=== PATIENT | male | born 1970 | race Caucasian/White ===

== ENCOUNTER 2022-11-19 04:10 | Inpatient (IN) | payer OTHER ==
[~2022-11-19] VITALS: Ht 193 cm; Wt 69.0 kg
[2022-11-19] VITALS (31 sets, daily range): BP systolic 86–144; BP diastolic 63–103
[2022-11-19] MEDS ORDERED: POTA10T PO (04:23)
[2022-11-19] MEDS ORDERED: FURO40 PO (04:23)
[2022-11-19 04:24] LABS: BASOPHILS ABSOLUTE AUTO 0.07 K/mm3 (0.00-0.23); BASOPHILS PERCENT AUTO 1 % (0-2); EOSINOPHILS ABSOLUTE AUTO 0.09 K/mm3 (0.00-0.68); EOSINOPHILS PERCENT AUTO 1 % (0-6); Hematocrit 46.4 % (37.0-53.0); Hemoglobin 13.9 g/dL (13.5-17.5); IMMATURE GRAN ABSOLUTE AUTO 0.03 K/mm3 (0.00-0.10); IMMATURE GRAN PERCENT AUTO 0 % (0-1); LYMPHOCYTES PERCENT AUTO 8 % (21-46); MONOCYTES ABSOLUTE AUTO 0.89 K/mm3 (0.16-1.47); MONOCYTES PERCENT AUTO 8 % (4-13); Mean Corpuscular HGB 31.7 pg (26.0-34.0); Mean Corpuscular Volume 106 fL (80-100); Mean Platelet Volume 8.9 fL (9.1-12.4); NEUTROPHILS ABSOLUTE AUTO 9.26 K/mm3 (1.96-9.15); NEUTROPHILS PERCENT AUTO 82 % (41-73); Platelet Count 218 K/mm3 (150-400); RDW Standard Deviation 51.2 fL (35.1-46.3); Red Blood Cell Count 4.39 M/mm3 (4.30-5.90); White Blood Cell Count 11.24 K/mm3 (4.00-11.30)
[2022-11-19] MEDS ORDERED: TRELEGY ELLIPT1 EACH INH (04:24)
[2022-11-19 04:38] LABS: Bicarbonate Venous 40.9 mmol/L (24.0-30.0)
[2022-11-19 04:59] LABS: Alanine Aminotransfer (ALT/SGP 26 U/L (12-78); Albumin, Blood 3.7 g/dL (3.4-5.0); Albumin/Globulin Ratio 0.9 (0.8-1.8); Alk Phos 135 U/L (50-136); Aspartate Aminotrans (AST/SGOT 21 U/L (12-37); Bilirubin, Total 0.3 mg/dL (0.1-1.0); Blood Urea Nitrogen 20 mg/dL (8-24); Bun/Creatinine Ratio 38.3 (12.0-20.0); Calcium, Blood 9.5 mg/dL (8.5-10.1); Chloride, Blood 90 mmol/L (98-108); Creatinine, Blood 0.52 mg/dL (0.60-1.20); Glomerular Filtration Rate 121 (60-); Glucose, Blood 151 mg/dL (70-99); Potassium, Blood 4.9 mmol/L (3.5-5.5); Sodium, Blood 134 mmol/L (136-145); Total Protein, Blood 7.7 g/dL (6.4-8.2)
[2022-11-19 05:00] LABS: Anion Gap Unable to Calculate mmol/L (6-16); CO2, Blood >45 mmol/L (21-32)
[2022-11-19 07:43] LABS: Base Excess Venous 19.4 mmol/L; Bicarbonate Venous 37.6 mmol/L (24.0-30.0)
[2022-11-19 07:44] LABS: PCO2 Venous > 104 mmHg (38-42); pH Blood Venous 7.25 (7.34-7.37)
--- NOTE | 2022-11-19 08:45 | NUR ---
ARRIVAL TO ICU PT BROUGHT TO ICU 14 AT THIS TIME FROM PCU. PT ON BIPAP WITH SETTINGS 16/6/40%. RR 20S-30S. SPO2 88-93%. PT MAKES EYE CONTACT, FOLLOWS SIMPLE COMMANDS. HE IS ALERT TO SELF AND PLACE BUT STS HE DOES NOT KNOW HOW HE GOT HERE. HE DENIES SOB AND CP AT THIS TIME. WHEN ASKED IF HE FEELS BIPAP, PT STS "I THINK SO". WHILE REPOSITIONING, PT REPORTS ORTHOPNEA AND SITS UP IN TRIPOD POSITION. SAFETY COMPLIANCE SPECIALIST HAS BEEN CONSULTED. CONSULTING SYSTEMS ENGINEER AT BEDSIDE.
--- NOTE | 2022-11-19 09:15 | NUR ---
UPDATE ECHO COMPLETE. PER TECH, PRELIMINARY RESULTS SHOW POSSIBLE PE AND AWAITIN OFFICIAL READ. DR GOSS NOTIFIED. NO ADDITIONAL ORDERS AT THIS TIME.
[2022-11-19 09:31] LABS: Base Excess Venous 18.4 mmol/L; Bicarbonate Venous 37.5 mmol/L (24.0-30.0); PCO2 Venous 99.5 mmHg (38-42); pH Blood Venous 7.27 (7.34-7.37)
--- NOTE | 2022-11-19 09:40 | NUR ---
CARE ASSUMPTION AND TRANSFER NOTE PT ARRIVED TO PCU FROM ED VIA ED STRETCHER AT APPROX 0730. PT WAS SLID BY 4 STAFF FROM ED STRETCHER TO PCU BED. PT RESPONDING TO SOME COMMANDS, LETHARGIC. UNABLE TO ANSWER WHERE HE WAS. ABLE TO STATE HAS SON WITH "MY NAME", UNABLE TO STATE HOW TO CONTACT SON. PT ARRIVED ON BIPAP, 16/8, 30%. TACHYPENIC, WORK OF BREATHING NOTED, SP02>90%. LUNGS WHEEZY, CRACKLES IN BASES. RT IN ROOM W/ NEB TX. TELEMETRY VERIFIED W/ SINUS TACH, HR 110'S. BP STABLE. PEDAL PULSES STRONG, THOUGH FEET COLD TO TOUCH. TRACE EDEMA NOTED IN ANKLES. ABX INFUSING PER EMAR UPON ARRIVAL. RT NOTIFIED OF CRITICAL VBG, SEE RESULTS. RT CHANGED SETTINGS TO 18/, 40% FI02. CALL PLACED TO MD JIMENEZ. MD JIMENEZ IN ROOM TO ASSESS. PT INCREASINGLY LETHARGIC. MD JIMENEZ W/ ORDERS FOR PT TO BE TRANSFER TO ICU 14. REPORT GIVEN TO PROCUREMENT SERVICES MANAGER.
--- NOTE | 2022-11-19 10:00 | NUR ---
UPDATE DR GOSS AT BEDSIDE. ECHO REPORT NOW AVAILABLE. PT REMAINS ON BIPAP. HIS MENTATION TRANSITIONS FROM A&OX1-2, SOMNOLENT AT TIMES.
[2022-11-19 11:08] LABS: U Amphetamine Screen Not Detected; U Barbituate Screen Not Detected; U Benzodiazapine Screen Not Detected; U Buprenorphine Screen Not Detected; U Cannabinoids Screen DETECTED; U Cocaine Screen Not Detected; U Methadone Screen Not Detected; U Methamphetamine Screen Not Detected; U Opiates Screen Not Detected; U Oxycodone Screen Not Detected; U Phencyclidine Screen Not Detected; U Propoxyphene Screen Not Detected
--- NOTE | 2022-11-19 11:34 | NUR ---
UPDATE PT MORE ALERT AT THIS TIME. HE STS HE FELT SOB THIS MORNING AND HIM AND HIS DECIDED TO CALL EMS. HE STS HE HAS A HISTORY OF COPD AND WEARS CONTINUOUS 8L O2 AT HOME. HE ALSO REPORTS RECENTLY RE-STARTING SMOKING 1/4-1/2 PACK OF CIGARETTES A DAY AND IT HAS INCREASED COUGHING AT HOME. PT DENIES MEDICAL HISTORY OTHER THAN COPD. PLAN FOR CTA.
[2022-11-19 12:05] LABS: Influenza A, PCR NEGATIVE (NEGATIVE); Influenza B, PCR NEGATIVE (NEGATIVE); Resp Syncytial Virus, PCR NEGATIVE (NEGATIVE); SARS-Cov-2 (COVID-19) PCR, MMC NEGATIVE (NEGATIVE)
[2022-11-19 12:27] LABS: Base Excess Venous 20.2 mmol/L; Bicarbonate Venous 39.9 mmol/L (24.0-30.0); PCO2 Venous 88.2 mmHg (38-42); pH Blood Venous 7.33 (7.34-7.37)
[2022-11-19] MEDS ORDERED: SILD25T PO ×2 (14:52→14:53)
[2022-11-19] MEDS ORDERED: STIOLTO RESPIMAT4 G1 INH (14:54)
[2022-11-19] MEDS ORDERED: MIRT15ST PO (14:54)
[2022-11-19] MEDS ORDERED: ALBU90OI INH (14:54)
[2022-11-19 15:15] LABS: Anion Gap Unable to Calculate mmol/L (6-16); Blood Urea Nitrogen 15 mg/dL (8-24); Bun/Creatinine Ratio 29.3 (12.0-20.0); CO2, Blood >45 mmol/L (21-32); Calcium, Blood 9.1 mg/dL (8.5-10.1); Chloride, Blood 91 mmol/L (98-108); Creatinine, Blood 0.51 mg/dL (0.60-1.20); Glomerular Filtration Rate 121 (60-); Glucose, Blood 206 mg/dL (70-99); Phosphorus, Blood 2.7 mg/dL (2.5-4.9); Potassium, Blood 5.4 mmol/L (3.5-5.5); Sodium, Blood 136 mmol/L (136-145)
--- NOTE | 2022-11-19 18:32 | NUR ---
SHIFT SUMMARY PT HAS BEEN TOLERATING BIPAP WELL WITH SETTINGS 16/8/35%. PT HAS PERIODS OF SOMNOLENCE AND THEN BEING A&OX3. HE HAS DIFFICULTY REMEMBERING SPECIFIC DETAILS BUT IS ABLE TO ANSWER HEALTH HISTORY QUESTIONS FOR THE MOST PART. HE STS HE SEES A DR IN [place]. HE STS HE HAS COPD AND WEARS 8L NC CONTINUOUS AT HOME AND THAT IT HAS GOTTEN WORSE OVER THE LAST YEAR. WHEN ASKED IF HE HAS BEEN TOLD THAT HE HAS PULMONARY HYPERTENSION HE STS "YEAH I THINK I'VE BEEN TOLD THAT BEFORE, SOUNDS FAMILIAR". CURRENTLY HE IS A&OX3, ON 15L HI-FLOW NC TO EAT DINNER, PLAN TO TRANSITION BACK TO BIPAP AFTER MEAL. PT REPORTS FEELING ANXIOUS. HE REPORTS USING MARIJUANA TO MANAGE ANXIETY AT HOME. DR GOSS NOTIFIED, ORDER RECEIVED FOR PRN XANAX. HE HAS BEEN IN SINUS TACH SINCE ADMISSION WITH RATE 100S-120S. BP STABLE, MAP >65. SNOW PATENT AND DRAINING TO GRAVITY WITH 2000ML OUTPUT THIS SHIFT. BED IN LOW POSITION AND CALL LIGHT WITHIN REACH.
--- NOTE | 2022-11-19 19:55 | NUR ---
PATIENT SOB AFTER EATING DINNER WITH RESP IN THE 30'S. ON 14L/NC DURING BREAK FROM BIPAP. PATIENT REQUESTING WARM AIR OFF ON BIPAP, BIPAP 16/6 FIO2 35% PLACED WHEN FALLING TO SLEEP BIOX DOWN TO 88-89% FIO2 ON BIPAP INCREASED TO 45% AND PATIENT REPOSITIONED IN BED. PATIENT NOW SLEEPING RESP 23 WITH BIPAP 16/6 FIO2 40% IN PLACE BIOX 94% OPENS EYES TO STIMULI, FALLING BACK TO SLEEP EASILY. PATIENTS MAHESH GIVEN UPDATE.
[2022-11-19 20:16] LABS: Source, Urine Foley catheter
[2022-11-19 20:19] LABS: Bilirubin, Urine Neg (Neg); Blood, Urine 5+ (Neg); Glucose Qualitative, Urine Neg (Neg); Ketones, Urine Neg (Neg); Leukocyte Esterase, Urine 2+ (Neg); Nitrite, Urine Neg (Neg); Protein, Urine 2+ (Neg); Specific Gravity, Urine 1.015 (1.003-1.022); Urobilinogen, Urine NORM (Normal)
[2022-11-19 20:29] LABS: Appearance, Urine Cloudy (Clear); Color, Urine Red (P-Yellow)
[2022-11-19 20:30] LABS: Bacteria Few /hpf; Red Blood Cells, Urine TNTC /hpf (0-2); Squamous Epithelial Cells Not Seen /hpf (Few)
[2022-11-20] VITALS (24 sets, daily range): BP systolic 92–164; BP diastolic 70–120
[2022-11-20 03:37] LABS: BASOPHILS ABSOLUTE AUTO 0.02 K/mm3 (0.00-0.23); BASOPHILS PERCENT AUTO 0 % (0-2); EOSINOPHILS ABSOLUTE AUTO 0.01 K/mm3 (0.00-0.68); EOSINOPHILS PERCENT AUTO 0 % (0-6); Hematocrit 39.9 % (37.0-53.0); Hemoglobin 12.3 g/dL (13.5-17.5); IMMATURE GRAN ABSOLUTE AUTO 0.05 K/mm3 (0.00-0.10); IMMATURE GRAN PERCENT AUTO 0 % (0-1); LYMPHOCYTES ABSOLUTE AUTO 0.58 K/mm3 (0.84-5.20); LYMPHOCYTES PERCENT AUTO 4 % (21-46); MONOCYTES PERCENT AUTO 4 % (4-13); Mean Corpuscular HGB Conc 30.8 g/dL (31.5-36.5); Mean Corpuscular Volume 104 fL (80-100); Mean Platelet Volume 9.5 fL (9.1-12.4); NEUTROPHILS ABSOLUTE AUTO 12.32 K/mm3 (1.96-9.15); NEUTROPHILS PERCENT AUTO 91 % (41-73); Platelet Count 199 K/mm3 (150-400); RDW Standard Deviation 49.2 fL (35.1-46.3); Red Blood Cell Count 3.84 M/mm3 (4.30-5.90); White Blood Cell Count 13.58 K/mm3 (4.00-11.30)
[2022-11-20 04:00] LABS: Magnesium, Blood 1.9 mg/dL (1.6-2.4)
[2022-11-20 04:03] LABS: Alanine Aminotransfer (ALT/SGP 17 U/L (12-78); Albumin, Blood 2.9 g/dL (3.4-5.0); Albumin/Globulin Ratio 0.9 (0.8-1.8); Alk Phos 103 U/L (50-136); Aspartate Aminotrans (AST/SGOT 16 U/L (12-37); Bilirubin, Total 0.3 mg/dL (0.1-1.0); Blood Urea Nitrogen 16 mg/dL (8-24); Bun/Creatinine Ratio 31.1 (12.0-20.0); Calcium, Blood 8.7 mg/dL (8.5-10.1); Chloride, Blood 90 mmol/L (98-108); Creatinine, Blood 0.51 mg/dL (0.60-1.20); Globulin, Blood 3.3 g/dL (2.2-4.0); Glomerular Filtration Rate 121 (60-); Glucose, Blood 173 mg/dL (70-99); Potassium, Blood 4.6 mmol/L (3.5-5.5); Sodium, Blood 136 mmol/L (136-145); Total Protein, Blood 6.2 g/dL (6.4-8.2)
[2022-11-20 04:05] LABS: Anion Gap Unable to Calculate mmol/L (6-16); CO2, Blood >45 mmol/L (21-32)
--- NOTE | 2022-11-20 06:38 | NUR ---
SUMMARY PATIENT SLEEPING WITH BIPAP 16/6 FIO2 40% IN PLACE T/O NIGHT, TAKING SHORT BREAKS ON 14L/NC, THIS MORNING AWAKE AND ASKING FOR COFFEE, OXYGEN TITRATED DOWN TO 8L/NC DUE TO BIOX 97-99%. PATIENT REQUESTING BIPAP REPLACED DUE TO FEELING DIFFICULTY TAKING DEEP BREATH. PATIENT REMAINS SINUS TACH MOSTLY LOW 100'S ONCE DURING THE NIGHT SVT 150, WHILE PATIENT SLEEPING, SELF RESOLVING.
--- NOTE | 2022-11-20 18:30 | NUR ---
Shift summary. Pt alert and oriented. On bipap throughout most of the shift. Independent in bed, able to easily ambulate to commode. Able to tolerate short breaks off bipap with humidified high-flow NC at 10 L/min. Pt tires easily. VS stable, no acute events this shift. See chart for further details. Will report off to nightshift RN.
--- NOTE | 2022-11-20 19:13 | NUR ---
PATIENT RESTING QUIETLY WATCHING TV, BIPAP 16/6 FIO2 35% IN PLACE. PATIENT VERBALIZED "I'M FEELING WIPED" RESP CONTINUE 30'S INCREASING WITH EXERTION.
[2022-11-21] VITALS (12 sets, daily range): BP systolic 107–131; BP diastolic 76–92
[2022-11-21 03:43] LABS: BASOPHILS ABSOLUTE AUTO 0.01 K/mm3 (0.00-0.23); BASOPHILS PERCENT AUTO 0 % (0-2); EOSINOPHILS PERCENT AUTO 0 % (0-6); Hematocrit 41.4 % (37.0-53.0); Hemoglobin 12.5 g/dL (13.5-17.5); IMMATURE GRAN ABSOLUTE AUTO 0.04 K/mm3 (0.00-0.10); IMMATURE GRAN PERCENT AUTO 0 % (0-1); LYMPHOCYTES ABSOLUTE AUTO 0.59 K/mm3 (0.84-5.20); LYMPHOCYTES PERCENT AUTO 5 % (21-46); MONOCYTES PERCENT AUTO 3 % (4-13); Mean Corpuscular HGB 31.6 pg (26.0-34.0); Mean Corpuscular HGB Conc 30.2 g/dL (31.5-36.5); Mean Corpuscular Volume 105 fL (80-100); Mean Platelet Volume 9.7 fL (9.1-12.4); NEUTROPHILS ABSOLUTE AUTO 11.15 K/mm3 (1.96-9.15); NEUTROPHILS PERCENT AUTO 92 % (41-73); Platelet Count 216 K/mm3 (150-400); RDW Coefficient Variation 12.9 % (11.7-14.2); RDW Standard Deviation 50.4 fL (35.1-46.3); Red Blood Cell Count 3.96 M/mm3 (4.30-5.90); White Blood Cell Count 12.09 K/mm3 (4.00-11.30)
[2022-11-21 06:05] LABS: Albumin, Blood 3.1 g/dL (3.4-5.0); Bilirubin, Total 0.3 mg/dL (0.1-1.0); Bun/Creatinine Ratio 32.8 (12.0-20.0); Calcium, Blood 8.9 mg/dL (8.5-10.1); Creatinine, Blood 0.52 mg/dL (0.60-1.20); Globulin, Blood 3.2 g/dL (2.2-4.0); Potassium, Blood 4.7 mmol/L (3.5-5.5); Total Protein, Blood 6.3 g/dL (6.4-8.2)
--- NOTE | 2022-11-21 14:00 | NUR ---
Spiritual Care Visit. Pt. is awake in bed and welcomes my visit. Pt. is pleasant. Facilitate a life review and listen with empathy and a calming presence. Pt. verbalizes that he is on the edge of losing a place to live. Pt. displays evidence of both awareness and engagement. Considered matters of marty and belief and pastoral care is given. Prayed with Pt. Pt. verbalized gratitude for the spiritual care visit.
--- NOTE | 2022-11-21 17:42 | NUR ---
SUMMARY PT RESTING IN BED. A/OX4. OOB TO BATHROOM WITH STANDBY ASSIST. A LITTLE WEAK IN LE'S. GETS SOB WITH ANY EXERTION. HAS BEEN OFF BIPAP SINCE THIS AM, NOW ON 8L NC AND DOING WELL. DOWNGRADED TO PCU STATUS TODAY. NO ACUTE CHANGES THIS SHIFT.
--- NOTE | 2022-11-21 20:17 | NUR ---
PATIENT SLEEPING ON 8L/NC. DIFFICULT TO AWAKEN. OPENING EYES TO STRONG STIMULI AND NODDING YES WHEN EXPLAINED THAT HIS BIPAP WAS GOING TO BE PLACED ON. BIPAP 16/6 FIO2 35% PLACED. PATIENT FOLLOWING DIRECTIONS, BUT FALLING BACK TO SLEEP VERY EASILY.
[2022-11-22] VITALS (7 sets, daily range): BP systolic 101–146; BP diastolic 67–94
[2022-11-22 04:31] LABS: Hematocrit 42.7 % (37.0-53.0); Hemoglobin 12.8 g/dL (13.5-17.5); Mean Corpuscular HGB 31.6 pg (26.0-34.0); Mean Corpuscular Volume 105 fL (80-100); Mean Platelet Volume 9.5 fL (9.1-12.4); Platelet Count 226 K/mm3 (150-400); RDW Coefficient Variation 13.1 % (11.7-14.2); RDW Standard Deviation 51.3 fL (35.1-46.3); Red Blood Cell Count 4.05 M/mm3 (4.30-5.90); White Blood Cell Count 11.14 K/mm3 (4.00-11.30)
[2022-11-22 05:09] LABS: Anion Gap Unable to Calculate mmol/L (6-16); Blood Urea Nitrogen 22 mg/dL (8-24); Bun/Creatinine Ratio 39.1 (12.0-20.0); CO2, Blood >45 mmol/L (21-32); Calcium, Blood 8.9 mg/dL (8.5-10.1); Chloride, Blood 94 mmol/L (98-108); Creatinine, Blood 0.56 mg/dL (0.60-1.20); Glomerular Filtration Rate 118 (60-); Glucose, Blood 98 mg/dL (70-99); Potassium, Blood 4.6 mmol/L (3.5-5.5); Sodium, Blood 138 mmol/L (136-145)
--- NOTE | 2022-11-22 05:38 | NUR ---
PATIENT AOX4. RESTED WELL OVERNIGHT. SR WITH STABLE BP. COMPLIANT WITH BIPAP 16/6 35% WHILE SLEEPING, 8L NC FOR SMALL BREAKS WHILE AWAKE. TOLERATING DIET.
--- NOTE | 2022-11-22 18:14 | NUR ---
TRANSFER/END OF SHIFT NOTE: PT TRANSFERRED FROM ICU14 TO [facility] AT 1615. THIS RN REMAINED PRIMARY NURSE THROUGH TRANSFER. NO ACUTE CHANGES THIS SHIFT. PT A&OX4, COOPERATIVE WITH CARE AND ABLE TO COMMUNICATE NEEDS WITH STAFF. HR 100-110'S, SR/ST. SBP 110-140'S, DENIES CHEST PAIN. PT DID REPORT CHEST PRESSURE THIS AM, RESOLVED WITH BIPAP USE. SPO2 92-93% ON 8L HIFLOW NC; ACCESSORY MUSCLE USE AND PURSED LIP BREATHING NOTED T/O SHIFT. HOB KEPT ELEVATED. BIPAP USED PRN, 16/6 WITH FIO2 35%. PT TOLERATING DIET WELL. 1 BM THIS AM. SBA TO BATHROOM, VOIDING YELLOW URINE. CALL LIGHT WITHIN REACH, BED IN LOWEST POSITION. WILL REPORT TO ONCOMING RN.
[2022-11-23 03:37] VITALS: BP 100/68
--- NOTE | 2022-11-23 05:47 | NUR ---
SHIFT SUMMARY PT IS A&OX4, CALLS APPROPRIATELY, AND HAS BEEN SBA IN THE ROOM FOR TX. HE HAS BEEN BETWEEN 8L HFNC AND THE BIPAP 16/6 @ 35%. HE DENIES ANY SOB. WITH EXCERTION HE GETS CHEST TIGHTNESS FROM WORK OF BREATHING. ON TELE THE PT HAS BEEN ST/SR 90'S-110'S. BP STABLE. NO ACUTE EVENTS OVERNIGHT. SEE NOTES FOR ANY UPDATES. FIRE IGNITION RISK THELMA BEEN ASSESSED THE PT RECIEVES NICOTINE PATCHES AN ALTERNATIVE TO SMOKING.
[2022-11-23 07:34] VITALS: BP 119/88
--- NOTE | 2022-11-23 10:05 | NUR ---
PHYSICIAN CONTACT NO AM LABS DRAWN TODAY (11/23/22). CALL PLACED TO MD. NO NEW ORDERS RECEIVED. SOLUTION DESIGNER NOTIFIED.
[2022-11-23 11:19] VITALS: BP 108/83
[2022-11-23 15:29] VITALS: BP 124/80
--- NOTE | 2022-11-23 17:19 | NUR ---
END OF SHIFT NOTE: NO ACUTE EVENTS THIS SHIFT. PT A&OX4, SOMNELENT AT TIMES BUT AROUSABLE WITH VERBAL STIMULI. ABLE TO COMMUNICATE NEEDS WITH STAFF AND CALL APPROPRIATELY. HR 90-100'S, SR/ST. SBP 100-120'S. PT DENIES CP/PRESSURE. SPO2 >88% ON 7-8L VIA HIFLOW NC; BIPAP T/O SHIFT 16/6 AND FIO2 35%. PT W/ NOTICEABLE DYSPNEA T/O SHIFT, WORSENS W/ EXERTION. HOB ELEVATED. PHYSICAL THERAPY ORDER PLACED FOR EVALUATION. PT ABLE TO AMBULATE TO RESTROOM W/ 1P SBA, VOIDING YELLOW URINE. NICOTINE PATCH IN PLACE ALTERNATIVE TO SMOKING. CALL LIGHT WITHIN REACH, BED IN LOWEST POSITION. WILL REPORT TO ONCOMING RN.
[2022-11-23 20:59] VITALS: BP 132/80
[2022-11-23 23:12] VITALS: BP 101/74
[2022-11-24 04:42] VITALS: BP 98/72
--- NOTE | 2022-11-24 04:47 | NUR ---
SHIFT SUMMARY PT IS A&OX4, SBA FOR LINE MANAGEMENT, AND HE CALLS APPROPRAITELY. HE HAS BEEN SR/ST 90'S-110'S ON TELE AND HE DENIES ANY ANGINA OR CHEST PRESSURE. HE HAS BEEN ON HIS HOME TRILOGY WITH 10L T/O THE NGIHT. SP02 >93%. HE DENIES ANY ANGINA. THE PT WAS ANXIOUS AT THE START OF THE SHIFT AND HE WAS GIVEN XANAX TO HELP EASE HIS BREATHING AND RELAX HIM. NO ACUTE EVENTS. FIRE IGNITION RISK ASSESSED AND NO RISK AT THIS TIME. PT USES A NICOTINE PATCH.
[2022-11-24 07:23] VITALS: BP 143/92
[2022-11-24 10:46] LABS: Base Excess Venous 28.7 mmol/L; Bicarbonate Venous 46.7 mmol/L (24.0-30.0); PCO2 Venous 104 mmHg (38-42); pH Blood Venous 7.33 (7.34-7.37)
[2022-11-24 11:20] VITALS: BP 126/79
[2022-11-24 16:09] VITALS: BP 129/83
--- NOTE | 2022-11-24 16:22 | NUR ---
Spoke with Primary RNs Marcel Denson, and discussed case. Pt sitting on edge of bed and is A&OX4. Pt denies pain at this time. Pt does report dypnea and anxiety. Pt reports living in [place] in a trailer with his . Pt reports struggling with ambulation any significant distance without needing to stop and rest. He reports wearing O2 at with 8 L O2 being his base line. Listened as Pt reports having financial difficulties and can not afford a phone, car insurance, or gas for the car. Continued therapeutic listening. Engaged in therapeutic conversation regarding advanced care planning. Educated on disease process including trajectory. Discussed the importance of planning for the future as disease progresses. Discussed considering hospice at some point. Educated on hospice philosophy with V/U made by Pt. Pt expresses interest and is amenable to having hospice come out to his home to discuss further. Continued therapeutic conversation. Pt does express some concerns regrading his and the idea of hospice as she may become significantly anxious regarding topic. Pt reports no other concerns at this time. Spoke with Dr Kyle and discussed case. Palliative Care will remain available
--- NOTE | 2022-11-24 16:46 | NUR ---
END OF SHIFT NOTE: NO ACUTE EVENTS THIS SHIFT. PT REMAINS A&OX4, ANXIOUS AT TIMES. PLEASANT AND COOPERATIVE WITH CARE. CALLS APPROPRIATELY AND ABLE TO COMMUNICATE NEEDS WITH STAFF. HR SR/ST, 90-110'S. SBP 120-140'S, PT DENIES CHEST PAIN/PRESSURE. REPORTS INTERMITTENT TIGHTNESS THAT REPORTEDLY RESOLVES WITH BIPAP USE. SPO2 >88% ON 7-8L VIA HIFLOW NC/HOME TRILOGY. RR 20'S. PT ABLE TO AMBULATE TO BATHROOM WITH SBA, INCREASED SOB AND WOB WITH EXERTION. PT EVAL COMPLETED TODAY. SEE PALLIATIVE CARE NOTES REGARDING POTENTIAL HOSPICE INVOLVEMENT ONCE RETURNED HOME. MD WITH ORDERS FOR ROXANOL PER EMAR FOR AIR HUNGER THIS SHIFT. NICOTINE PATCH IN PLACE ALTERNATIVE TO SMOKING. CALL LIGHT WITHINR REACH, BED IN LOWEST POSITION. WILL REPORT TO ONCOMING PETERSON RN.
[2022-11-24 19:47] VITALS: BP 116/79
[2022-11-25 03:41] VITALS: BP 100/69
--- NOTE | 2022-11-25 04:46 | NUR ---
SHIFT SUMMARY PT A&Ox4, CALLS AND COMMUNICATES NEEDS APPROPRIATELY. BP STABLE, ST 100's, DENIES CP/PRESSURE. SpO2> 92% 7L VIA NC OR HOME TRILOGY, DENIES SOB. CONTINENT OF URINE AND BOWEL, SBA TO BATHROOM. NO OTHER EVENTS, WILL REPORT TO ONCOMING RN.
[2022-11-25 07:41] VITALS: BP 115/79
[2022-11-25 11:40] VITALS: BP 111/83
[2022-11-25 16:00] VITALS: BP 117/86
[2022-11-25 20:08] VITALS: BP 95/58
[2022-11-25 23:54] VITALS: BP 108/76
[2022-11-26 03:47] VITALS: BP 116/81
[2022-11-26 04:44] LABS: Anion Gap Unable to Calculate mmol/L (6-16); Blood Urea Nitrogen 22 mg/dL (8-24); CO2, Blood >45 mmol/L (21-32); Calcium, Blood 9.1 mg/dL (8.5-10.1); Chloride, Blood 91 mmol/L (98-108); Creatinine, Blood 0.54 mg/dL (0.60-1.20); Glomerular Filtration Rate 119 (60-); Glucose, Blood 115 mg/dL (70-99); Potassium, Blood 4.6 mmol/L (3.5-5.5); Sodium, Blood 136 mmol/L (136-145)
--- NOTE | 2022-11-26 06:05 | NUR ---
SHIFT SUMMARY PT IS ALERT AND ORIENTED X 4, HE IS ABLE TO MAKE HIS NEEDS KNOWN. BP STABLE, HR NOTED TO BE 90-102 PER TELE MONITORING. SPO2 MAINTAINED >95% VIA HOME TRILOGY W/ 7L BLEED WHILE SLEEPING, HE CAN ALSO TOLERATE 7L VIA NC TO EAT/TAKE PILLS. HE DENIES CHEST PAIN/PRESSURE, HE REPORTED DYSPNEA W/EXERTION BUT REPORTED SOB AT REST HAS IMPROVED, ROXANOL GIVEN PER EMAR ORDERS 1X FOR AIRHUNGER AND PT REPORTED MUCH IMPROVEMENT. HE IS INDEPENDENT IN ROOM. PT NOW APPEARS TO BE SLEEPING COMFORTABLY, CALL LIGHT W/IN REACH.
[2022-11-26 07:34] VITALS: BP 108/83
[2022-11-26 16:23] VITALS: BP 112/82
--- NOTE | 2022-11-26 18:14 | NUR ---
PT SUMMARY: PT TRANSITION TO MEDICAL STATUS NO TELE. NO ACUTE CHANGE FOR THE SHIFT. VITALS HAS BEEN STABLE, PT HAS BEEN AMBULATING INDEPENDENTLY IN THE BATHROOM NO ISSUES. ROXANOL GIVEN ONCE FOR THE SHIFT. HAS MILD SOB AND ANXIETY. REMAINS ON 6-8L OF O2 VIA NASAL CANNULA. USES HOME TRILOGY AT BEDSIDE WHEN SLEEPING OR NEEDED. REPEAT VBG IN AM. PT STARTED ON CPT PER RT AND FLUTTER VALVE. [facility]. NO OTHER ISSUES ENCOUNTERED FOR THE SHIFT, ABLE TO MAKE NEEDS KNOWN, WILL REPORT TO ONCOMING SHIFT
[2022-11-26 19:46] VITALS: BP 110/73
[2022-11-27 03:05] VITALS: BP 112/74
--- NOTE | 2022-11-27 03:24 | NUR ---
TRANSFER OF CARE NOTE GAVE REPORT TO MED FLOOR RN JEFFERSON MASTERS FOR ASSUMPTION OF CARE. ALL QUESTIONS ANSWERS, VSS UPON TRANSFER TO MEDICAL FLOOR.
[2022-11-27 03:53] VITALS: BP 126/88
[2022-11-27 03:56] LABS: Base Excess Venous 20.7 mmol/L; Bicarbonate Venous 40.8 mmol/L (24.0-30.0); PCO2 Venous 71.9 mmHg (38-42); pH Blood Venous 7.41 (7.34-7.37)
[2022-11-27 04:03] LABS: BASOPHILS ABSOLUTE AUTO 0.04 K/mm3 (0.00-0.23); BASOPHILS PERCENT AUTO 0 % (0-2); EOSINOPHILS ABSOLUTE AUTO 0.15 K/mm3 (0.00-0.68); EOSINOPHILS PERCENT AUTO 1 % (0-6); Hematocrit 40.5 % (37.0-53.0); Hemoglobin 12.6 g/dL (13.5-17.5); IMMATURE GRAN PERCENT AUTO 1 % (0-1); LYMPHOCYTES PERCENT AUTO 13 % (21-46); MONOCYTES ABSOLUTE AUTO 1.26 K/mm3 (0.16-1.47); MONOCYTES PERCENT AUTO 9 % (4-13); Mean Corpuscular HGB 31.6 pg (26.0-34.0); Mean Corpuscular HGB Conc 31.1 g/dL (31.5-36.5); Mean Corpuscular Volume 102 fL (80-100); Mean Platelet Volume 9.4 fL (9.1-12.4); NEUTROPHILS ABSOLUTE AUTO 10.94 K/mm3 (1.96-9.15); NEUTROPHILS PERCENT AUTO 77 % (41-73); Platelet Count 358 K/mm3 (150-400); RDW Coefficient Variation 12.9 % (11.7-14.2); RDW Standard Deviation 48.3 fL (35.1-46.3); Red Blood Cell Count 3.99 M/mm3 (4.30-5.90); White Blood Cell Count 14.29 K/mm3 (4.00-11.30)
--- NOTE | 2022-11-27 04:35 | NUR ---
0400 TRANSFER TO 330 A/O VSS PLEASENT PT WEARING MASK DUE TO COPD. PT IS INDEOENDANT IN AND MONITORS OWN EQUIPTMENT. STATES HE WILL CALL IF NEEDING TO GET UP. SAT 96 ON 6 LITER THOUGH PT USES 8 LITERS AT HOME. NO C/O PAIN WORKING HARD TO BREATH BUT THAT IS PT NORM. POWER GLIDE TO LEFT ARM DRAWN FOR LAB AND HAS BLOOD RETURN.
[2022-11-27 04:51] LABS: Albumin, Blood 3.3 g/dL (3.4-5.0); Anion Gap 1 mmol/L (6-16); Blood Urea Nitrogen 24 mg/dL (8-24); Bun/Creatinine Ratio 45.6 (12.0-20.0); CO2, Blood 42 mmol/L (21-32); Calcium, Blood 9.2 mg/dL (8.5-10.1); Chloride, Blood 92 mmol/L (98-108); Creatinine, Blood 0.53 mg/dL (0.60-1.20); Glomerular Filtration Rate 120 (60-); Glucose, Blood 137 mg/dL (70-99); Potassium, Blood 4.1 mmol/L (3.5-5.5); Sodium, Blood 135 mmol/L (136-145)
[2022-11-27 07:50] VITALS: BP 111/72
[2022-11-27 11:39] VITALS: BP 128/84
[2022-11-27 15:30] VITALS: BP 109/81
--- NOTE | 2022-11-27 18:45 | NUR ---
SUMMARY- NO ACUTE EVENTS THIS SHIFT. INDEPENDENT TO THE BATHROOM. AAOX4.
[2022-11-27 20:00] VITALS: BP 127/87
[2022-11-28 04:19] VITALS: BP 101/61
--- NOTE | 2022-11-28 05:05 | NUR ---
SHIFT SUMMARY PT A&O X4, CALM AND COOPERATIVE WITH CARE. PT HAS HOME BIPAP MACHINE IN ROOM AND MANAGES. PT ALSO HAS O2 VIA NC AT 5L. PT SWITCHES BACK AND FORTH. BIPAP IN PLACE WHILE SLEEPING. SATS KEPT ABOVE 92%. PT BASELINE AT HOME IS 8L. CONTINUOUS O2 MONITORING IN PLACE. PT COMPLAINED OF SOB DUE TO ANXIETY-TREATED PER EMAR. PT REQUIRES SBA DUE TO LINES, OTHERWISE INDEPENDENT. CONTINENT. BED KEPT IN LOWEST POSITION, CALL LIGHT WITHIN REACH. PT CALLS APPROPRIATELY.
[2022-11-28 07:56] VITALS: BP 109/87
--- NOTE | 2022-11-28 11:06 | NUR ---
Spiritual Care visit. Pt. is sitting up on the side of his bed when I come to the room. Pt. welcome my visit. Pt. displays evidence of anxiety about his living conditions at home after discharge. The most significant concern is about not having access to a phone. Listen with empathy and a calming presence. Supported the Pt. with encouragement about his physical progress. Pt. verbalized gratitude to the entire hospital staff for the quality of care that he has been given. Prayed with Pt. pt. verbalized gratitude for the spiritual care visit.
--- NOTE | 2022-11-28 18:17 | NUR ---
SUMMARY- NO ACUTE EVENTS THIS SHIFT. NO CHANGES. PT IS ON 5L NC CONTINUOUS HF OR 5L BLEED IN ON HIS BIPAP. PT IS INDEPENDENT IN ROOM AND FEELS LIKE HE IS AT THIS BASELINE.
[2022-11-28 19:50] VITALS: BP 120/81
[2022-11-29 03:22] VITALS: BP 109/74
--- NOTE | 2022-11-29 04:35 | NUR ---
SHIFT SUMMARY PT IS A&O4, IND IN THE ROOM, 5L HIFLO NC SATS >92, VSS, ROXANOL GIVEN X1 PER MAR THIS SHIFT, NO ACUTE OVERNIGHT EVENTS, CONTINUE POC
[2022-11-29 07:45] VITALS: BP 117/85
[2022-11-29] MEDS ORDERED: PRED20 PO (13:33)
[2022-11-29 15:41] VITALS: BP 134/87
--- NOTE | 2022-11-29 16:32 | NUR ---
DISCHARGE NOTE PT DISCHARGED AT APPROX 1555. PT PROVIDED W/ VERBAL AND WRITTEN INSTRUCTIONS AND REPORTED UNDERSTANDING. PT A&OX4, VSS, VOIDING, TOLERATING PO, AND DENIED PAIN. BELONGINGS RETURNED. PT ESCOURTED OUT VIA W/C BY KATELYN GOODSON TO BE TRANSPORTED BY TRANSPORTATION COMPANY.
== END 2022-11-29 16:37 | disposition home health service (06) | DRG 177 ==
LOC: ER 04:10 → ICUE 06:20 → PCU 06:20 → ICUE 08:40 → PCU 11-22 16:16 → MEDS 11-27 03:39
PROVIDERS: Emergency Medicine; Internal Medicine; Student in an Organized Health Care Education/Training Program; ADMIT Student in an Organized Health Care Education/Training Program
PROC: 5A09457 Assistance with Respiratory Ventilation, 24-96 Consecutive Hours, Continuous Positive Airway Pressure (ICD-10-PCS; principal; 2022-11-19)
DX: J15.69 Pneumonia due to other Gram-negative bacteria (principal); G92.8 Other toxic encephalopathy; J96.21 Acute and chronic respiratory failure with hypoxia; I26.99 Other pulmonary embolism without acute cor pulmonale; J96.22 Acute and chronic respiratory failure with hypercapnia; I50.31 Acute diastolic (congestive) heart failure; J44.1 Chronic obstructive pulmonary disease with (acute) exacerbation; J84.9 Interstitial pulmonary disease, unspecified; Z66 Do not resuscitate; Z20.822 Contact with and (suspected) exposure to COVID-19; I27.20 Pulmonary hypertension, unspecified; I50.810 Right heart failure, unspecified; F15.10 Other stimulant abuse, uncomplicated; Z99.81 Dependence on supplemental oxygen; Z79.899 Other long term (current) drug therapy
CPT/HCPCS: 0241U; 36415; 51702; 71045; 71260; 76775; 80048; 80053; 80069; 81001; 82803; 82947; 83605; 83735; 83880; 84100; 84145; 84484; 85025; 85027; 87040; 87086; 93005; 93010; 93306; 94640; 94644; 94660; 94664; 94667; 94668; 94761; 94762; 96365-59; 96375-59; 97110; 97110-CQ; 97112; 97116; 97116-CQ; 97162; 97530; 99285-25; A9270; J0456; J0696; J1650; J1940; J2310; J2920; J2930; J3411; J7030; J7050; J7512; J7626; Q9967

== ENCOUNTER 2023-02-13 15:07 | Inpatient (IN) | payer OTHER ==
[~2023-02-13] VITALS: Ht 188 cm; Wt 67.5 kg
[~2023-02-13 15:07] MED LIST: ALBU90OI INH; FURO40 PO; MIRT15ST PO; POTA10T PO; PRED20 PO; SILD25T PO; STIOLTO RESPIMAT4 G1 INH; TRELEGY ELLIPT1 EACH INH
[2023-02-13 15:43] LABS: BASOPHILS ABSOLUTE AUTO 0.06 K/mm3 (0.00-0.23); BASOPHILS PERCENT AUTO 1 % (0-2); EOSINOPHILS ABSOLUTE AUTO 0.09 K/mm3 (0.00-0.68); EOSINOPHILS PERCENT AUTO 1 % (0-6); Hematocrit 40.8 % (37.0-53.0); IMMATURE GRAN ABSOLUTE AUTO 0.09 K/mm3 (0.00-0.10); IMMATURE GRAN PERCENT AUTO 1 % (0-1); LYMPHOCYTES ABSOLUTE AUTO 0.66 K/mm3 (0.84-5.20); LYMPHOCYTES PERCENT AUTO 6 % (21-46); MONOCYTES ABSOLUTE AUTO 0.78 K/mm3 (0.16-1.47); MONOCYTES PERCENT AUTO 8 % (4-13); Mean Corpuscular HGB 30.7 pg (26.0-34.0); Mean Corpuscular HGB Conc 29.4 g/dL (31.5-36.5); Mean Corpuscular Volume 104 fL (80-100); Mean Platelet Volume 9.9 fL (9.1-12.4); NEUTROPHILS ABSOLUTE AUTO 8.62 K/mm3 (1.96-9.15); NEUTROPHILS PERCENT AUTO 84 % (41-73); Platelet Count 407 K/mm3 (150-400); RDW Coefficient Variation 13.1 % (11.7-14.2); RDW Standard Deviation 49.8 fL (35.1-46.3); Red Blood Cell Count 3.91 M/mm3 (4.30-5.90)
[2023-02-13 15:57] LABS: Bicarbonate Venous 56.8 mmol/L (24.0-30.0); PCO2 Venous 104 mmHg (38-42); pH Blood Venous 7.38 (7.34-7.37)
[2023-02-13 15:58] LABS: Base Excess Venous 36.4 mmol/L
[2023-02-13 16:29] LABS: Influenza A, PCR NEGATIVE (NEGATIVE); Influenza B, PCR NEGATIVE (NEGATIVE); Resp Syncytial Virus, PCR NEGATIVE (NEGATIVE); SARS-Cov-2 (COVID-19) PCR, MMC NEGATIVE (NEGATIVE)
[2023-02-13 18:00] LABS: pH Blood Venous 7.34 (7.34-7.37)
[2023-02-13 18:01] LABS: Base Excess Venous 31.6 mmol/L
[2023-02-13 18:06] LABS: PCO2 Venous > 105 mmHg (38-42)
[2023-02-13 19:29] LABS: U Cannabinoids Screen DETECTED
[2023-02-13 19:30] LABS: U Amphetamine Screen Not Detected; U Barbituate Screen Not Detected; U Benzodiazapine Screen Not Detected; U Buprenorphine Screen Not Detected; U Cocaine Screen Not Detected; U Methadone Screen Not Detected; U Methamphetamine Screen Not Detected; U Opiates Screen Not Detected; U Oxycodone Screen Not Detected; U Phencyclidine Screen Not Detected
[2023-02-13 19:33] LABS: PCO2 Arterial 102 mmHg (35-45); PO2 Arterial 69.6 mmHg (80-100); pH Blood Arterial 7.38 (7.35-7.45)
[2023-02-13 20:27] VITALS: BP 145/93
[2023-02-13 20:27] LABS: Alanine Aminotransfer (ALT/SGP 25 U/L (12-78); Albumin, Blood 2.7 g/dL (3.4-5.0); Albumin/Globulin Ratio 0.6 (0.8-1.8); Alk Phos 136 U/L (50-136); Aspartate Aminotrans (AST/SGOT 36 U/L (12-37); Bilirubin, Total 0.5 mg/dL (0.1-1.0); Blood Urea Nitrogen 12 mg/dL (8-24); Bun/Creatinine Ratio 30.9 (12.0-20.0); Calcium, Blood 8.5 mg/dL (8.5-10.1); Chloride, Blood 77 mmol/L (98-108); Creatinine, Blood 0.39 mg/dL (0.60-1.20); Globulin, Blood 4.6 g/dL (2.2-4.0); Glomerular Filtration Rate 131 (60-); Glucose, Blood 139 mg/dL (70-99); Potassium, Blood 5.1 mmol/L (3.5-5.5); Sodium, Blood 130 mmol/L (136-145); Total Protein, Blood 7.3 g/dL (6.4-8.2)
[2023-02-13 20:28] LABS: Anion Gap Unable to Calculate mmol/L (6-16)
[2023-02-13 20:29] LABS: CO2, Blood >45 mmol/L (21-32)
[2023-02-13 20:30] VITALS: BP 135/103
--- NOTE | 2023-02-13 20:41 | NUR ---
RECEIVED INTO CARE AT 2019 RECEIVED ON BIPAP, APPEARS TO BE TOLERATING IT WELL. IS ALERT BUT RESTLESS, NOT ANSWERING MANY QUESTIONS. TRANSFERRED FROM STRETCHER TO BED WITH SLIDER SHEET. ATTACHED TO MONITOR. RT AT BEDSIDE. ASSESSMENT COMPLETE. FAMILY IN TO VISIT.
[2023-02-13 20:45] VITALS: BP 105/93
[2023-02-13 21:00] VITALS: BP 122/93
[2023-02-13 22:00] VITALS: BP 106/77
[2023-02-13 23:00] VITALS: BP 99/75
[2023-02-14] VITALS (24 sets, daily range): BP systolic 99–127; BP diastolic 65–87
[2023-02-14 03:51] LABS: PCO2 Venous 89.5 mmHg (38-42); pH Blood Venous 7.44 (7.34-7.37)
[2023-02-14 03:52] LABS: Base Excess Venous 36.9 mmol/L
[2023-02-14 04:22] LABS: Hematocrit 39.7 % (37.0-53.0); Hemoglobin 11.5 g/dL (13.5-17.5); Mean Corpuscular Volume 104 fL (80-100); Platelet Count 378 K/mm3 (150-400); RDW Coefficient Variation 12.9 % (11.7-14.2); RDW Standard Deviation 49.1 fL (35.1-46.3); Red Blood Cell Count 3.83 M/mm3 (4.30-5.90); White Blood Cell Count 8.36 K/mm3 (4.00-11.30)
[2023-02-14 05:26] LABS: Blood Urea Nitrogen 13 mg/dL (8-24); Bun/Creatinine Ratio 33.2 (12.0-20.0); Calcium, Blood 8.6 mg/dL (8.5-10.1); Chloride, Blood 77 mmol/L (98-108); Creatinine, Blood 0.39 mg/dL (0.60-1.20); Glomerular Filtration Rate 131 (60-); Glucose, Blood 134 mg/dL (70-99); Potassium, Blood 4.3 mmol/L (3.5-5.5); Sodium, Blood 132 mmol/L (136-145)
[2023-02-14 05:27] LABS: Anion Gap Unable to Calculate mmol/L (6-16); CO2, Blood >45 mmol/L (21-32)
--- NOTE | 2023-02-14 06:03 | NUR ---
SLEPT FOR MOST OF NIGHT. TOLERATED BIPAP WELL WITH IPAP16 EPAP8 FIO2 40%. CRITICAL CO2 OF >45 ON MORNING LAB WORK. MORE CLEAR THIS MORNING, OREINTED TO PLACE/PERSON/MONTH. SR/ST 95-110S.
[2023-02-14 06:11] LABS: Source, Urine Foley catheter
[2023-02-14 06:23] LABS: Bilirubin, Urine Neg (Neg); Blood, Urine Neg (Neg); Glucose Qualitative, Urine Neg (Neg); Ketones, Urine Neg (Neg); Leukocyte Esterase, Urine Neg (Neg); Nitrite, Urine Neg (Neg); Protein, Urine 2+ (Neg); Urobilinogen, Urine NORM (Normal)
[2023-02-14 07:21] LABS: Appearance, Urine Clear (Clear); Color, Urine Yellow (P-Yellow)
[2023-02-14 07:46] LABS: Bacteria Not Seen /hpf; Red Blood Cells, Urine Not Seen /hpf (0-2); Squamous Epithelial Cells Rare /hpf (Few); White Blood Cells, Urine Not Seen /hpf (0-5)
--- NOTE | 2023-02-14 12:18 | NUR ---
ASSUMED CARE CARE WAS ASSUMED OF PT AT 0700. PT A/O X 2-3, UNABLE TO SAY THAT HE IS IN THE HOSPITAL WITHOUT PROMPTING. PT APPROPRIATE, ABLE TO FOLLOW COMMANDS. PT SCATTERED WHEN HAVING CONVERSATION, DIFFICULT TO UNDERSTAND AT TIMES OR WILL BRING UP RANDOM TOPICS THAT AREN'T CORRELATED WITH CURRENT SITUATION. PT ON BIPAP, SETTINGS CHANGED MULTIPLE TIMES T/O MORNING BY DR. GOSS AND RT. AT THIS TIME PT ON BIPAP, 17/8/40% WITH BACKUP RATE OF 22. PT ABLE TO HAVE SHORT BREAKS OFF BIPAP WITH TRANSITION TO HI-FLOW N/C. PT WOULD TOLERATE WELL BUT WOULD HAVE VISIBLE INCREASE WORK OF BREATHING AND SWITCH BACK TO BIPAP. PT ABLE TO EAT BREAKFAST THIS MORNING, DIET SWITCHED TO MECHANICAL SOFT. CARDIAC MONITORING REFLECTS NSR/SINUS TACH. HR 90s-100s. SBP 120s. SNOW PATENT AND DRAINING TO GRAVITY.
--- NOTE | 2023-02-14 17:20 | NUR ---
SHIFT SUMMARY PT REMAINS A/O X2-3. PT ABLE TO PARTICIPATE IN CONVERSATION APPROPRIATELY. PT DIFFICULT TO UNDERSTAND AT TIMES D/T MUMBLING AND/OR BIPAP. PT ON 10 L N/C AT THIS TIME, TAKING A BREAK FROM HIS BIPAP TO EAT DINNER. PT HAS TOLERATED BREAKS FROM BIPAP THIS SHIFT. RT, DC, WAS ABLE TO CONTACT [facility] AND MAKE ADJUSTMENTS TO BIPAP IN CORRELATION WITH TRILOGY SETTINGS AT HOME. CARDIAC MONITORING REFLECTS SINUS TACH AT THIS TIME, HR 100s. SBP 90s-100s. SNOW REMAINS PATENT AND DRAINING TO GRAVITY. PT HAD BED BATH THIS SHIFT WITH LINEN CHANGED. PT ABLE TO EAT INDEPENDENTLY, TOLERATING MEALS WELL. SPOKE WITH TODAY, PLAN FOR HER TO VISIT PATIENT WHEN A RIDE FOR HER IS AVAILABLE AND BRING PT'S TRILOGY MACHINE PER PT'S REQUEST.
--- NOTE | 2023-02-14 17:41 | NUR ---
"Spiritual Care Visit | Nurse Request Pt. is sitting up and eating dinner when he welcomes my visit. Pt. is pleasant but is unsettled because he was having a hard time swallowing his dinner roll. This ready to wear department manager has seen this Pt. on a previous visit, so rapport is established pretty quickly. Considered matters of marty and belief. Prayed with Pt. This ready to wear department manager provided the Pt. with a wooden cross, and a [employer]/Psalms bible. Pt. verbalized gratitude for the spiritual care visit and the gifts."
[2023-02-15] VITALS (14 sets, daily range): BP systolic 90–129; BP diastolic 59–87
--- NOTE | 2023-02-15 05:55 | NUR ---
SHIFT SUMMERY PT IS ALERT AND ORIENTED X3, ABLE TO MAKE NEEDS KNOWN. HE BEEN ON AVAPS MOST OF THE NIGHT. TOLERATED WELL W/SHORT BREAKS OF HFNC FOR MEDS/SNACKS. PT HAS A SNOW CATHETER INTACT AND DRAINING TO GRAVITY. PT HAS BEEN ST ON THE PETROLEUM SAMPLER W/BP WNL. HE HAS BEEN AFEBRILE.
--- NOTE | 2023-02-15 09:27 | NUR ---
ASSUMED CARE CARE WAS ASSUMED OF PT AT 0700, REPORT GIVEN BY KAYLYNN ZEPEDA. PT A/O X4. ABLE TO PARTICIPATE IN CONVERSATION AND ANSWER QUESTIONS APPROPRIATELY. PT DIFFICULT TO UNDERSTAND AT TIMES D/T MUMBLING AND SOFT VOICE. PT ON 9 L HI-FLOW N/C AT SHIFT CHANGE, TOLERTING WELL. O2 SATS > 90%. PT PLACED BACK ON BIPAP THIS MORNING AFTER BREAKFAST, BEGINNING TO FALL ASLEEP. CARDIAC MONITORING REFLECTS SINUS TACH/NSR. HR 90s-100s. SBP 110s-120s. PT CHANGED TO PCU STATUS THIS MORNING PER DR. GOSS. SNOW PATENT AND DRAINING TO GRAVITY, PLAN TO REMOVE THIS SHIFT. PT DENIES PAIN AT THIS TIME.
--- NOTE | 2023-02-15 17:20 | NUR ---
SHIFT SUMMARY PT REMAINS A/O X4. PT HAD NO ACUTE CHANGES THIS SHIFT. PT TOLERATING BREAKS FROM BIPAP WELL. AT THIS TIME PT ON 6 L N/C. PT'S BROUGHT IN PT'S TRIOLOGY TODAY. WHEN IN USE PT'S O2 SATS 89-92%. O2 SATS > 90% AT THIS TIME. CARDIAC MONITORING REFLECTS SINUS TACH AT THIS TIME, BP STABLE. PT MADE PCU STATUS THIS MORNING. SNOW REMOVED THIS AFTERNOON, PT PROVIDED WITH URINAL. PT TOLERATING MEALS WELL.
--- NOTE | 2023-02-15 19:00 | NUR ---
ASSUMED CARE OF PT AT 1900 PT RESTING IN BED DURING BEDSIDE SHIFT REPORT. VITALS WITHIN PT NORMAL LIMITS AT THIS TIME. SEE FULL ASSESSMENT FOR FURTHER DETAILS.
--- NOTE | 2023-02-15 20:51 | NUR ---
PT UP TO COMMODE IN ROOM. LARGE BM WITH URINE WELL. PT DESATS ONLY WHEN STANDING UP. SET AT 9 L NC. 5 MINUTE RECOVERY TIME BACK TO >90% SPO2.
[2023-02-16] VITALS: BP 100/65
--- NOTE | 2023-02-16 06:09 | NUR ---
END OF SHIFT SUMMARY PT A/O X4. COOPERATIVE WITH CARE. NO ACUTE CHANGES THIS SHIFT. OXYGEN SUPPLEMENTATION NOT CHANGED THIS SHIFT. 9 L NC FOR A FEW HOURS THEN HOME TRILOGY USED THIS AM FOR 3 HOURS. PT HAD ONE INCONTINENT BLADDER FOOD SERVICE ORDER CLERK. OTHERWISE HAS BEEN ABLE TO TRANSFER TO [facility] BY ASSIST TWICE. HEALTHY APPETITE WITH GOOD FLUID INTAKE.
[2023-02-16 09:04] VITALS: BP 125/77
[2023-02-16 12:00] VITALS: BP 107/77
[2023-02-16 16:00] VITALS: BP 139/87
--- NOTE | 2023-02-16 16:51 | NUR ---
SUMMARY PT A/O X4 TODAY. SOB WITH EXERTION BUT PT STATES HE IS CLOSE TO BASELINE. SITS AT EDGE OF BED INDEP AND USES URINAL. SPO2 DROPS TO 80'S BUT PT IS ABLE TO RECOVER WITH HIS USUAL BREATHING TECHNIQUES. ON 6-8L OXYGEN VIA NC. TOLERATING MEALS WELL. NO SIGN OF DISTRESS. PT TRANSFERED TO PCU 5.
[2023-02-16 16:52] VITALS: BP 107/71
--- NOTE | 2023-02-16 18:56 | NUR ---
SHIFT SUMMARY PT TRANSFERRED TO UNIT AT APPROXIMATELY 1740 FROM THE ICU. PT IS ALERT AND ORIENTED X 4 AND HAS TROUBLE GETTING OUT WHAT HE WANTS TO SAY AT TIMES. PERMYA. PT ON 8L NC AND MAINTAINING O2 SATURATION ABOVE 90%, HE SAYS HE GETS SOB WITH EXERTION. PT JUST CALLED ME INTO ROOM SAYING HE WAS FEELING "AIR HUNGRY" AND FEELING ANXIOUS, I INCREASED HIS OXYGEN VIA NC AND RESPIRATORY THERAPY IS IN WITH PATIENT NOW. PT USES URINAL INDEPENDENTLY. NO BOWEL MOVEMENT. DISCOLORATION TO BLE, PT SAID THAT IS NORMAL FOR HIM. PT HAS HOME TRILOGY MACHINE AT BEDSIDE. BEDSIDE REPORT PERFORMED AT BEDSIDE WITH GRANITE FABRICATOR NURSE. PT IN BED WITH TRILOGY MASK ON WATCHING FOOTBALL. CALL LIGHT WITHIN REACH.
[2023-02-16 19:48] VITALS: BP 127/94
[2023-02-17 00:02] VITALS: BP 109/64
[2023-02-17 01:50] LABS: Acinetobacter baumannii DNA Not Detected copy/mL (NOT DETECT); Enterobacter cloacae DNA Not Detected copy/mL (NOT DETECT); Escherichia coli DNA Not Detected copy/mL (NOT DETECT); Haemophilus influenzae DNA Not Detected copy/mL (NOT DETECT); Klebsiella aerogenes DNA Not Detected copy/mL (NOT DETECT); Klebsiella oxytoca DNA Not Detected copy/mL (NOT DETECT); Klebsiella pneumoniae DNA Not Detected copy/mL (NOT DETECT); Moraxella catarrhalis DNA Not Detected copy/mL (NOT DETECT); Proteus sp DNA Not Detected copy/mL (NOT DETECT); Pseudomonas aeruginosa DNA Not Detected copy/mL (NOT DETECT); Serratia marcescens DNA Not Detected copy/mL (NOT DETECT); Staphylococcus aureus DNA Detected Bin 10^4 copy/mL (NOT DETECT); Streptococcus agalactiae DNA Not Detected copy/mL (NOT DETECT); Streptococcus pneumoniae DNA Not Detected copy/mL (NOT DETECT); Streptococcus pyogenes DNA Not Detected copy/mL (NOT DETECT)
[2023-02-17 01:51] LABS: Adenovirus DNA Not Detected (NOT DETECT); Chlamydia pneumonia Not Detected (NOT DETECT); Human Coronavirus RNA Not Detected (NOT DETECT); Human Metapneumovirus RNA Not Detected (NOT DETECT); Influenza virus A RNA Not Detected (NOT DETECT); Influenza virus B RNA Not Detected (NOT DETECT); Legionella pneumophila Not Detected (NOT DETECT); Mycoplasma pneumoniae Not Detected (NOT DETECT); Parainfluenza virus RNA Not Detected (NOT DETECT); Respiratory syncytial Vir RNA Not Detected (NOT DETECT); Rhinovirus+Enterovirus RNA Not Detected (NOT DETECT)
[2023-02-17 04:14] VITALS: BP 109/65
--- NOTE | 2023-02-17 05:31 | NUR ---
SHIFT SUMMARY A/Ox4 AND COOPERATIVE WITH CARE. PT INTERMITTENTLY CONFUSED WHEN FIRST WAKING UP AND TENDS TO NOT ANSWER QUESTIONS IMMEDIATELY. THIS DOES NOT SUSTAIN HOWEVER FOR PT IS ABLE TO BE REORIENTATED AFTER A FEW MINUTES. CARDIAC, REMAINS IN SR-ST 90-110'S WITH NO REPORTS OF CP OR PRESSURE T/O THE NIGHT. SBP HAS BEEN STABLE RANGING 100-120'S. RESPIRATORY, MAINTAIN SPO2 88-94% ON 6-8L VIA HFNC. LS CONTINUE TO BE VERY TIGHT/DIMINISHED T/O. WEARS HOME TRILOGY PRN AND WHEN SLEEPING. HAS INTERMITTENT EPISODES OF ANXIETY LEADING TO INCREASED WORK OF BREATHING AND SEVERE INCREASE IN O2 DEMAND. DR. SHELLY Govea MADE AWARE, NO NEW ORDERS AT THIS TIME. GI/, ABLE TO VOID INDEPENDENTLY INTO URINAL AT BEDSIDE. CONTINUES TO BE VERY WEAK WITH MINIMAL EXERTION DUE TO SEVERE OXYGEN DEMAND. PT/OT ON BOARD. ASSESSED PT FOR RISKS OF ANY IGNITION SOURCES WELL BEHAVIORS FOR INCREASED RISKS OF FIRE DANGER. PT EDUCATED ON COMMON SOURCES OF IGNITION WELL NEED TO KEEP A SAFE ENVIRONMENT. PT VOICED UNDERSTANDING. NO NEW ORDERS AT THIS TIME, WILL REPORT TO ONCOMING RN. REJI REEVES OF THIS NOTE
[2023-02-17 07:12] VITALS: BP 105/77
[2023-02-17 11:08] VITALS: BP 115/68
[2023-02-17 15:15] VITALS: BP 115/79
--- NOTE | 2023-02-17 17:32 | NUR ---
SHIFT SUMMARY PT IS ALERT AND ORIENTED X 4, COOPERATIVE WT CARE, AND ABLE TO MAKE NEEDS KNOWN. ANTONIA. HE HAS BEEN ON 6-10L VIA NC TODAY. HE IS CURRENTLY ON 6L NC. PT GETS SOB QUICKLY WITH EXERTION AND HIS OXYGEN SATURATION DIPS DOWN INTO 80'S AND THEN RECOVERS INTO LOW TO MID 90'S. PT HAS MOMENTS OF ANXIETY AND INCREASED AIR HUNGER, DISCUSSED WITH MD. PT HAD ONE EPISODE OF INCREASED AIR HUNGER AND ANXIETY DURING SHIFT AND WAS MEDICATED PER EMAR. PT SAID HIS ANXIETY AND AIR HUNGER DECREASED AFTER BEING MEDICATED. PALLIATIVE CARE HAD A LONG DISCUSSION WITH PT TODAY AND HE SAID IS NOT READY TO GO ON HOSPICE OR COMFORT CARE. DISCUSSED WITH CARE MANAGEMENT THE STATUS OF PTS INSURANCE. CARE MANAGEMENT SAID PT DOES HAVE [facility]. PT WORKED WITH PHYSICAL THERAPY TODAY WELL. PT USES URINAL INDEPENDENTLY, NO BOWEL MOVEMENT THIS SHIFT. PT CURRENTLY WATCHING TV WITH CALL LIGHT WITHIN REACH.
--- NOTE | 2023-02-17 19:01 | NUR ---
The patient and this RN had a lengthy conversation in which the pt states he is back to his previous baseline as far as his breathing is concerned, and is not interested in hospice care at this time. He talked of hoping to be awarded disability social security, states he is currently appealing a denial. He states he does agree the opioid medications help with air hunger, but states he would rather live as long as he can, and would prefer returning to the hospital again rather than being made comfortable at home. He also brings up the fact that he's 51 years old, stating it's just "too young to give up". Of course, I explained the hospice philosophy but he is just not open to the idea at this time.
[2023-02-17 20:19] VITALS: BP 116/71
[2023-02-18 00:23] VITALS: BP 126/82
[2023-02-18 04:22] VITALS: BP 123/91
--- NOTE | 2023-02-18 05:08 | NUR ---
SHIFT SUMMARY SSUMED CARE OF PT AT 1900. PT IS A/OX4. HEART SOUNDS REGULAR. LUNG SOUNDS COURSE WITH WHEEZES. PT SWITCHED BETWEEN HOME TRILOGY AND NC. PT DESATURATED TO 79% WITH ACTIVITY AND TOOK SEVERAL MIN TO RECOVER BUT PT DID NOT FEEL SYMTOMATIC. PT USED BSC INDEPENDENTLY AND HAD BM. NO ACUTE EVENTS, PT SLEPT T/O THE NOC.
[2023-02-18 09:04] VITALS: BP 128/100
[2023-02-18 17:05] VITALS: BP 124/90
--- NOTE | 2023-02-18 18:14 | NUR ---
ASSUMED CARE OF PT AT 0700 THIS AM. NO ACUTE EVENTS T/O THE DAY. PT HAS HAD NO COMPLIANTS OR CONCERNS. PER MD NOTES, PT IS FINISHING IV ABX X 5 DAYS. APPEARS TO BE BACK AT BASELINE O2 NEEDS. LIKELY TO DC SOON. SEE DOCUMENTED VS AND ASSESSMENT. PT IS MEDICAL NO TELE STATUS. PT IS ABLE TO USE HIS CALL LIGHT FOR NEEDS APPROPRIATELY, CALL LIGHT IN REACH. THIS RN WILL CONTINUE TO MONITOR/TREAT, AND GIVE REPORT TO NOC SHIFT RN.
[2023-02-18 20:45] VITALS: BP 111/77
[2023-02-19 05:00] VITALS: BP 127/83
[2023-02-19 05:19] VITALS: BP 127/83
[2023-02-19 08:43] VITALS: BP 119/87
[2023-02-19 12:50] VITALS: BP 120/78
--- NOTE | 2023-02-19 13:15 | NUR ---
THERAPY: PHYSICAL THERAPY IN ROOM TO WORK WITH PT TO MOBILIZE. WILL MONITOR SOB AND ACTIVITY TOLERANCE.
[2023-02-19 17:00] VITALS: BP 106/80
--- NOTE | 2023-02-19 18:07 | NUR ---
PT HAS BEEN STABLE THIS SHIFT. PT COMPLETED ABX COURSE. STEROIDS AND LASIX CHANGED TO PO. PT REMAINS ON 6-8L O2 PER HOME RANGE. BIPAP AT [facility]. NO TELE. PT USES URINAL AND BSC INDEP. PT HAD BM THIS SHIFT. TANIA MECH SOFT DIET. AM LABS ORDERED. POSSIBLE DC TO HOME TOMORROW. PALLIATIVE CARE INVOLVED IN CARE.
[2023-02-19 20:13] VITALS: BP 113/71
[2023-02-20] VITALS (8 sets, daily range): BP systolic 98–129; BP diastolic 60–97
--- NOTE | 2023-02-20 05:30 | NUR ---
SHIFT SUMMARY NO ACUTE CHANGES THIS SHIFT. AOX4. VSS. SPO2 >90% ON 7L O2 (BASELINE). DYSPNIC c MIN ACTVITY SUCH TALKING. BS c INSP/EXP WHEEZES IN R LOBES & CRACKLES IN BILAT LOWER LOBES. +1 EDEMA BILAT ANKLES. DENIES N/V OR PAIN. IND c URINAL. WILL MONITOR UNTIL DAY NURSE ASSUMES CARE.
--- NOTE | 2023-02-20 14:21 | NUR ---
AT APPROXIMATELY 1405 THIS RN WAS NOTIFIED BY MATERIALS AND PROCESSES MANAGER OF PT'S O2 SATURATION OF 85%. CASH REGISTER BALANCERIsrael LIZ WOKE PT FROM A NAP AND O2 SATURATION REMAINED LOW, WAVE FORM INCONSISTENT. O2 SENSOR CHANGED. O2 SATURATION REMAINED LOW 88-89%, O2 INCREASED TO 10L NC. RESPIRATORY THERAPY CALLED FOR BREATHING TREATMENT. LUNG SOUNDS DIM T/O, RR 28. PT SITTING UP AT EOB HE IS ALERT AND ORIENTED TAKING HIS BREATHING TREATMENT.
--- NOTE | 2023-02-20 15:07 | NUR ---
PT ON 10L O2 VIA NC AFTER HIS BREATHING TREATMENT. PT WAS SATURATING 94-95%. PT SLOWLY TITRATED DOWN TO 8L AND TOLERATED WELL. PT WAS TITRATED DOWN TO 7L AND O2 SATURATION BEGAN TO DROP. IT REACHED 87%. O2 INCREASED BACK TO 8L, O2 SATURATION HELD AT 88%. PT TITRATED BACK UP TO 10L O2 VIA NC AND PT NOW AT 89-91% ON 10 O2. PT DENIES INCREASED SHORTNESS OF BREATH. IS ALERT, ORIENTED AND INTERACTIVE WITH STAFF.
--- NOTE | 2023-02-20 16:35 | NUR ---
AT 1530 PT WANTED TO PUT ON HIS BIPAP TO TAKE A NAP, HIS O2 SATURATION DROPPED TO 86% WHEN PLACED ON BIPAP WITH 10L BLEED IT. PT PLACED BACK ON 10L O2 VIA NC AND RECOVERED BACK TO 90-93%. RT CALLED TO ASSIST WITH TRANSITION TO BIPAP FOR SLEEP. PT REQUESTED ROXANOL FOR AIR HUNGER SO THAT HE COULD REST COMFORTABLY, RR 18-24. PT WAS TRANSITIONED TO BIPAP WITH 12L BLEED IN. PT SLOWLY DESATURATED TO 86-88% AND MAINTAINED WHILE AT REST ON BIPAP. PT AWAKENED WHEN SPOKEN TO BUT CONTINUED TO REMAIN LOW. ALEXANDRO RT PRESEN. DR. BRAVO NOTIFIED AND ORDERS PLACED. PT TRANSITIONED BACK TO 10L HIGH FLOW NC AFTER WAKING FROM NAP AND COUGHING AND O2 SATURATION INCREASED TO 93-97%. RR REMAINED 18-24. DISCUSSED CONCERNS WITH WOOD MACHINE CARVER INCLUDING POSSIBLE NEED FOR NARCAN. DECIDED AGAINST NARCAN SINCE RR WNL AND PT WAS WOKE UP AND REMAINED ALERT AND ORIENTED. PT NOW MAINTAINING >93%, ON 9L, SLOWLY TITRATING BACK TO BASELINE. PT REMAINS AWAKE, ALERT AND ORIENTED, HE IS SITTING AT THE EDGE OF THE BED.
--- NOTE | 2023-02-20 16:42 | NUR ---
SHIFT SUMMARY PT HAS HAD SOME INCREASED O2 NEEDS THIS SHIFT, PT IS NOW ON 8L O2 VIA NC AND TOLERATING WELL. PT HAD SOME INCREASED DROWSINESS WITH LOW O2 SATURATION BUT WAS EASILY AROUSABLE. PT IS NOW ALERT AND SITTING AT THE EDGE OF THE BED. ROXANOL GIVEN FOR AIR HUNGER THIS, PT TOLERATED WELL THIS AM BUT LESS SO THIS EVENING (SEE NOTES). PT IS INDEPENDENT IN HIS ROOM.
[2023-02-20 16:50] LABS: Anion Gap Unable to Calculate mmol/L (6-16); Blood Urea Nitrogen 24 mg/dL (8-24); Bun/Creatinine Ratio 63.2 (12.0-20.0); CO2, Blood >45 mmol/L (21-32); Chloride, Blood 83 mmol/L (98-108); Creatinine, Blood 0.38 mg/dL (0.60-1.20); Glomerular Filtration Rate 132 (60-); Glucose, Blood 147 mg/dL (70-99); Sodium, Blood 132 mmol/L (136-145)
[2023-02-21 03:32] VITALS: BP 106/77
--- NOTE | 2023-02-21 04:47 | NUR ---
SHIFT SUMMARY PT WITH INCREASED OR NEEDS AT BEGINNING OF SHIFT. NEEDING 9L VIA HIFLOW NC WHILE AWAKE. WHILE SLEEPING WITH BIPAP PT NEEDING 10-15L BLEED IN TO MAINTAIN SPO2 >90%. DYSPNEA NOTED WITH EXERTION. BP STABLE. NO TELE. HR 90-100'S, REG. PT A&O X4. ABLE TO MAKE NEEDS KNOWN. USING URINAL AT BEDSIDE. ABLE TO SWITCH SELF FROM BIPAP TO NC INDEPENDENTLY. PT NOW ON 6L VIA NC. BED IN LOWEST POSITION AND CALL LIGHT WITHIN REACH. THIS RN WILL REPORT TO ONCOMING DAYSHIFT RN.
[2023-02-21 08:31] VITALS: BP 104/67
[2023-02-21 14:11] VITALS: BP 116/68
--- NOTE | 2023-02-21 14:29 | NUR ---
ASSUMED CARE OF PT AT 0700 THIS AM. NO ACUTE EVENTS SO FAR TODAY. PT DESATURATES TO 80s PERIODICALLY, BUT WILL RETURN TO >90% WITHOUT INTERVENTIONS. PT STATES HE IS FEELING "PRETTY GOOD" AND WAS HOPING TO DISCHARGE TODAY. PER DR BRAVO'S PROGRESS NOTE, POSSIBLE DISCHARGE TOMORROW IF PT HAS NO FURTHER RESPIRATORY EVENTS CAUSING INCREASED O2 DEMANDS. PT HAS HAD NO COMPLAINTS OF PAIN, +BM TODAY, ABLE TO VOID ON HIS OWN. ABLE TO MAKE NEEDS KNOWN AND USE CALL LIGHT APPROPRIATELY. WILL CONTINUE TO MONITOR AND TREAT, CALL LIGHT IN REACH.
--- NOTE | 2023-02-21 17:29 | NUR ---
PT DID HAVE AN EPISODE OF DESATURATION AND SOB THIS AFTERNOON REQUIRING O2 TO BE TURNED UP TO 9L VIA NC. THIS WAS SHORTLY AFTER SILDENAFIL WAS ADMINISTERED. PT ASKS IF THIS MEDICATION CAN HAVE THIS SIDE EFFECT. MAR REVIEWED AND IT APPEARS THAT HIS EPISODE OF SOB/DESAT THIS AM AND SOB/DESAT THIS AFTERNOON CORRELATE TO SILDENAFIL ADMINISTRATION POSSIBLY. PT RECOVERS WITHIN 35MINS AND IS ABLE TO HAVE HIS 02 TURNED BACK DOWN. NO OTHER ACUTE EVENTS TODAY. NO CHANGES TO PT'S OVER ALL STATUS. PT IS ABLE TO USE CALL LIGHT FOR NEEDS, CALL LIGHT IN REACH, WILL CONTINUE TO MONITOR/TREAT, AND GIVE REPORT TO NOC SHIFT RN AT THE END OF SHIFT.
[2023-02-21 20:06] VITALS: BP 109/70
[2023-02-22 03:47] VITALS: BP 98/72
--- NOTE | 2023-02-22 04:31 | NUR ---
SHIFT SUMMARY NO ACUTE CHANGES OVERNIGHT. PT USING 6-8L VIA NC WHILE AWAKE. TITRATING NEEDED. PT WEARING BIPAP WITH SLEEP; REQUIRING INCREASED O2 AT 15L BLEED IN TO MAINTAIN SPO2 >90%. OTHERWISE VSS. USING URINAL INDEPENDENTLY. NEURO INTACT. CALLING APPRORIATELY. BED IN LOWEST POSITION AND CALL LIGHT WITHIN REACH. THIS RN WILL REPORT TO ONCOMING DAYSHIFT RN.
--- NOTE | 2023-02-22 06:05 | NUR ---
PATIENT UPDATE PT REPORTING CHEST PAIN THIS AM. DESCRIBING "VERY" PAINFUL "LUMP" IN MID/RT CHEST AREA. PT STATING IT FEELS LIKE "SOMETHING IS STUCK IN THERE". PT WAS NOT EATING/DRINKING PRIOR TO PAIN. EKG DONE. NO ACUTE ST CHANGES NOTED. PAIN LASTED LESS THAN 5 MINUTES AND WENT AWAY WHILE HAVING EKG DONE. BP STABLE. ON 7L VIA NC WITH SPO2 >90%. SR 90'S. MD RODRIGUEZ NOTIFIED WITH ORDERS TO DO X3 TROPONINS Q3HRS AND PLACE PATIENT ON TELE. MD RODRIGUEZ TO BEDSIDE TO EVAL PATIENT. NO OTHER ORDERS OR CHANGES AT THIS TIME. THIS RN WILL REPORT TO ONCOMING [facility] RN.
[2023-02-22 06:17] VITALS: BP 124/92
[2023-02-22 09:29] VITALS: BP 109/75
[2023-02-22] MEDS ORDERED: FURO20 PO (11:52)
[2023-02-22] MEDS ORDERED: BUPR100 PO (11:52)
[2023-02-22] MEDS ORDERED: IPRAT-ALBUT 0.5-3 ML INH (11:55)
[2023-02-22] MEDS ORDERED: Prednisone10 MG PO (11:59)
[2023-02-22] MEDS ORDERED: NASAL SPRAY88 ML (12:01)
[2023-02-22] MEDS ORDERED: NYSTATIN100000 U13 MT (12:04)
[2023-02-22] MEDS ORDERED: Vitamin D1000 UNI1 PO (12:06)
[2023-02-22] MEDS ORDERED: OMEP20ER PO (12:06)
--- NOTE | 2023-02-22 14:23 | NUR ---
DISCHARGE NOTE: NO ACUTE EVENTS THIS AM. PT'S TROPONINS REMAINED WNL. NO REPORTS OF CHEST PAIN OR PRESSURE. DR BRAVO AT BEDSIDE THIS AM, DISCUSSED DISCHARGE PLAN WITH PT, THIS RN AT BEDSIDE. PT AGREES TO PLAN AND DISCHARGE ORDERS WERE ENTERED LATER IN THE AM ONCE THE SECOND TROPONIN RESULTED. TRANSPORTATION ARRANGED BY NADINE IN CARE MANAGEMENT. [facility] DELIVERED O2 TANK FOR TRANSPORT. PT'S MEDICATIONS FAXED TO [facility] IN [place] PER PT'S REQUEST. DISCHARGE TEACHING REVIEWED INCLUDING MEDICATION LIST, MEDICATION CHANGES, FOLLOW UP APPOINTMENTS AND EDUCATION MATERIALS. PT STATES SHE HAS NO FURTHER QUESTIONS. IVX2 REMOVED, CATHETERS INTACT, SITE WNL. ALL BELONGINGS SENT HOME WITH PT. NO FURTHER DISCHARGE NEEDS IDENTIFIED.
== END 2023-02-22 13:30 | disposition home or self-care (01) | DRG 189 ==
LOC: ER 15:07 → PCU 18:42 → ICUE 18:42 → PCU 02-16 16:48
PROVIDERS: Emergency Medicine; Internal Medicine; Nurse Practitioner Acute Care; Student in an Organized Health Care Education/Training Program; ADMIT Internal Medicine
PROC: 4A033R1 Measurement of Arterial Saturation, Peripheral, Percutaneous Approach (ICD-10-PCS; principal; 2023-02-13)
PROC: 5A09557 Assistance with Respiratory Ventilation, Greater than 96 Consecutive Hours, Continuous Positive Airway Pressure (ICD-10-PCS; 2023-02-13)
DX: J96.21 Acute and chronic respiratory failure with hypoxia (principal); G93.41 Metabolic encephalopathy; J44.1 Chronic obstructive pulmonary disease with (acute) exacerbation; I50.42 Chronic combined systolic (congestive) and diastolic (congestive) heart failure; J96.22 Acute and chronic respiratory failure with hypercapnia; F32.A Depression, unspecified; Z66 Do not resuscitate; I27.20 Pulmonary hypertension, unspecified; F15.11 Other stimulant abuse, in remission; F41.9 Anxiety disorder, unspecified; I50.810 Right heart failure, unspecified; I11.0 Hypertensive heart disease with heart failure; Z99.81 Dependence on supplemental oxygen; Z79.899 Other long term (current) drug therapy; Z79.51 Long term (current) use of inhaled steroids; F12.10 Cannabis abuse, uncomplicated; Z11.52 Encounter for screening for COVID-19
CPT/HCPCS: 0241U; 36415; 36600; 51702; 70450; 71045; 80048; 80053; 81001; 82803; 82947; 83605; 83735; 83880; 84484; 85025; 85027; 87040; 87070; 87205; 87633; 94640; 94644; 94645; 94660; 94664; 94762; 96365-59; 96367-59; 96375-59; 97110; 97112; 97116; 97161; 97165; 97530; 99291-25; A9270; J0456; J0692; J1650; J1940; J2270; J2920; J2930; J3475; J7030; J7050; J7512

== ENCOUNTER 2023-03-27 01:44 | Inpatient (IN) | payer OTHER ==
[~2023-03-27] VITALS: Ht 182.9 cm; Wt 66.6 kg
[2023-03-27] VITALS (31 sets, daily range): BP systolic 98–135; BP diastolic 67–98
[~2023-03-27 01:44] MED LIST changes: +BUPR100 PO; +FURO20 PO; +IPRAT-ALBUT 0.5-3 ML INH; +NASAL SPRAY88 ML; +NYSTATIN100000 U13 MT; +PANT20 PO; +Prednisone10 MG PO; +Vitamin D1000 UNI1 PO
[2023-03-27] MEDS ORDERED: Naloxone HCl 0.4MG / ML 1ML Vial ONE (02:02)
[2023-03-27] MEDS ORDERED: Naloxone HCl 0.4MG / ML 1ML Vial IV ONE ×2 (02:10)
[2023-03-27 02:18] LABS: Bicarbonate Venous 53.2 mmol/L (24.0-30.0)
[2023-03-27] MEDS ORDERED: Naloxone HCl 1MG / ML 2ML SYR ONE (02:19)
[2023-03-27 02:20] LABS: Base Excess Venous 34.8 mmol/L; PCO2 Venous > 104 mmHg (38-42); pH Blood Venous 7.26 (7.34-7.37)
[2023-03-27 02:30] LABS: BASOPHILS ABSOLUTE AUTO 0.05 K/mm3 (0.00-0.23); BASOPHILS PERCENT AUTO 1 % (0-2); EOSINOPHILS ABSOLUTE AUTO 0.06 K/mm3 (0.00-0.68); EOSINOPHILS PERCENT AUTO 1 % (0-6); Hematocrit 43.7 % (37.0-53.0); Hemoglobin 12.6 g/dL (13.5-17.5); IMMATURE GRAN ABSOLUTE AUTO 0.04 K/mm3 (0.00-0.10); IMMATURE GRAN PERCENT AUTO 0 % (0-1); LYMPHOCYTES ABSOLUTE AUTO 0.84 K/mm3 (0.84-5.20); LYMPHOCYTES PERCENT AUTO 8 % (21-46); MONOCYTES ABSOLUTE AUTO 0.88 K/mm3 (0.16-1.47); MONOCYTES PERCENT AUTO 8 % (4-13); Mean Corpuscular HGB Conc 28.8 g/dL (31.5-36.5); Mean Corpuscular Volume 108 fL (80-100); Mean Platelet Volume 9.4 fL (9.1-12.4); NEUTROPHILS ABSOLUTE AUTO 8.93 K/mm3 (1.96-9.15); NEUTROPHILS PERCENT AUTO 83 % (41-73); Platelet Count 359 K/mm3 (150-400); RDW Coefficient Variation 12.6 % (11.7-14.2); RDW Standard Deviation 50.4 fL (35.1-46.3); Red Blood Cell Count 4.06 M/mm3 (4.30-5.90)
[2023-03-27] MEDS ORDERED: NS IV SCH (02:35)
[2023-03-27] MEDS ORDERED: NALOXONE HCL IV SCH (02:35)
[2023-03-27 02:47] LABS: Source, Urine Clean Catch
[2023-03-27 02:51] LABS: Bilirubin, Urine Neg (Neg); Blood, Urine 4+ (Neg); Glucose Qualitative, Urine Neg (Neg); Ketones, Urine 1+ (Neg); Leukocyte Esterase, Urine Neg (Neg); Nitrite, Urine Neg (Neg); Protein, Urine 4+ (Neg); Specific Gravity, Urine 1.025 (1.003-1.022); Urobilinogen, Urine NORM (Normal)
[2023-03-27 02:59] LABS: Magnesium, Blood 2.1 mg/dL (1.6-2.4)
[2023-03-27 03:01] LABS: D-Dimer, Quantitative 0.38 mg/L FEU (0.00-0.52); International Normalized Ratio 1.02; Prothrombin Time Results 10.7 Sec (9.7-11.5)
[2023-03-27 03:06] LABS: Alanine Aminotransfer (ALT/SGP 28 U/L (12-78); Albumin/Globulin Ratio 0.7 (0.8-1.8); Alk Phos 133 U/L (50-136); Aspartate Aminotrans (AST/SGOT 27 U/L (12-37); Bilirubin, Total 0.2 mg/dL (0.1-1.0); Blood Urea Nitrogen 15 mg/dL (8-24); Bun/Creatinine Ratio 32.9 (12.0-20.0); Calcium, Blood 9.4 mg/dL (8.5-10.1); Chloride, Blood 84 mmol/L (98-108); Creatinine, Blood 0.46 mg/dL (0.60-1.20); Globulin, Blood 4.4 g/dL (2.2-4.0); Glomerular Filtration Rate 124 (60-); Glucose, Blood 151 mg/dL (70-99); Phosphorus, Blood 3.4 mg/dL (2.5-4.9); Potassium, Blood 4.1 mmol/L (3.5-5.5); Sodium, Blood 139 mmol/L (136-145); Total Protein, Blood 7.4 g/dL (6.4-8.2)
[2023-03-27 03:07] LABS: Anion Gap Unable to Calculate mmol/L (6-16)
[2023-03-27 03:08] LABS: CO2, Blood >45 mmol/L (21-32)
[2023-03-27 03:19] LABS: U Amphetamine Screen Not Detected; U Barbituate Screen Not Detected; U Benzodiazapine Screen Not Detected; U Cannabinoids Screen DETECTED; U Cocaine Screen Not Detected; U Methadone Screen Not Detected; U Methamphetamine Screen Not Detected; U Opiates Screen Not Detected; U Phencyclidine Screen Not Detected
[2023-03-27 03:20] LABS: U Buprenorphine Screen Not Detected; U Oxycodone Screen Not Detected
[2023-03-27 03:29] LABS: Appearance, Urine Clear (Clear); Color, Urine Yellow (P-Yellow)
[2023-03-27 03:31] LABS: Squamous Epithelial Cells Few /hpf (Few); White Blood Cells, Urine 0-2 /hpf (0-5)
[2023-03-27 03:32] LABS: Bacteria Few /hpf; Granular Casts 0-2 /lpf (0); Hyaline Casts 0-2 /lpf (0-2)
[2023-03-27] MEDS ORDERED: NS 1,000 ML IV ONE ×2 (04:35→16:30)
[2023-03-27] MEDS ORDERED: FLU VACC QS2023-24(6MOS UP)/PF 60 MCG/0.5 ML SYRINGE IM ONE (04:35)
[2023-03-27] MEDS ORDERED: Ipratropium/Albuterol SulF 2.5-0.5MG/3 ML Amp INH PRN (04:35)
[2023-03-27] MEDS ORDERED: Ondansetron HCl 2 MG / ML 2ML Vial IV PRN (04:35)
[2023-03-27 04:38] LABS: Base Excess Venous 34.6 mmol/L; PCO2 Venous > 104 mmHg (38-42); pH Blood Venous 7.31 (7.34-7.37)
[2023-03-27 04:38] LABS: Influenza A, PCR NEGATIVE (NEGATIVE); Influenza B, PCR NEGATIVE (NEGATIVE); Resp Syncytial Virus, PCR NEGATIVE (NEGATIVE); SARS-Cov-2 (COVID-19) PCR, MMC NEGATIVE (NEGATIVE)
[2023-03-27] MEDS ORDERED: Azithromycin 500 MG in NS 250 ML IV SCH (04:46)
[2023-03-27] MEDS ORDERED: CefTRIAXone Sodium 1,000 MG in NS 50 ML IV SCH (06:30)
--- NOTE | 2023-03-27 06:47 | NUR ---
ARRIVAL TO ICU PT ARRIVED VIA ED BED. PT LETHARGIC, ABLE TO STATE NAME AND THAT HE IS IN HOSPITAL. ABLE TO FOLLOW SIMPLE COMMANDS. UNABLE TO STATE HIS BIRTHDAY OR CURRENT DATE. NARCAN AT 1MG/HR. BIPAP IN PLACE 16/8 50%. INCREASED TO 18/8 50%. LUNG SOUNDS VERY DIM T/O. SPO2 GREATER THEN 92%. RR 20-28. VSS. SR/ST 90-100'S. CALL TO PT REGARDING PAST CODE STATUS DNR AND CURRENT CODE STATUS FULL CODE. FABIOLA RN AND GABRIEL ZEPEDA VERIFIED WITH "MAHESH" THAT PT WOULD WISH TO BE DNR. CALL TO HOSP AND ORDER TO CHANGE CODE STATUS. TO CALL BACK IN AWHILE TO TALK TO PT. BRIEF IN PLACE, C/D/I. WILL REPORT OFF TO ONCOMING RN.
--- NOTE | 2023-03-27 07:30 | NUR ---
ASSUMED CARE: PT RESTING IN BED, ON BIPAP 18/8 WITH 50% FIO2. SOMNOLENT, OPENS EYES WHEN NAME IS SAID BUT FALLS BACK TO SLEEP QUICKLY. NARCAN GTT IN PLACE AT 1MG/HR. NSR ON TELE. NO NEEDS AT THIS TIME.
[2023-03-27] MEDS ORDERED: MethylPREDNISolone Sod Succ 125 MG Vial IV SCH (08:00)
[2023-03-27] MEDS ORDERED: Enoxaparin 40 MG/0.4 ML SYR SC SCH (09:00)
[2023-03-27 09:25] LABS: Bicarbonate Venous 55.4 mmol/L (24.0-30.0)
[2023-03-27 09:26] LABS: pH Blood Venous 7.46 (7.34-7.37)
[2023-03-27 09:27] LABS: Base Excess Venous 34.4 mmol/L; PCO2 Venous 82 mmHg (38-42)
[2023-03-27 09:43] LABS: BASOPHILS ABSOLUTE AUTO 0.02 K/mm3 (0.00-0.23); BASOPHILS PERCENT AUTO 0 % (0-2); EOSINOPHILS PERCENT AUTO 0 % (0-6); Hemoglobin 11.6 g/dL (13.5-17.5); IMMATURE GRAN ABSOLUTE AUTO 0.03 K/mm3 (0.00-0.10); IMMATURE GRAN PERCENT AUTO 0 % (0-1); LYMPHOCYTES ABSOLUTE AUTO 0.41 K/mm3 (0.84-5.20); LYMPHOCYTES PERCENT AUTO 5 % (21-46); MONOCYTES ABSOLUTE AUTO 0.12 K/mm3 (0.16-1.47); MONOCYTES PERCENT AUTO 1 % (4-13); Mean Corpuscular HGB 30.8 pg (26.0-34.0); Mean Corpuscular HGB Conc 28.3 g/dL (31.5-36.5); Mean Corpuscular Volume 109 fL (80-100); Mean Platelet Volume 9.9 fL (9.1-12.4); NEUTROPHILS ABSOLUTE AUTO 8.24 K/mm3 (1.96-9.15); NEUTROPHILS PERCENT AUTO 94 % (41-73); Platelet Count 323 K/mm3 (150-400); RDW Coefficient Variation 12.6 % (11.7-14.2); RDW Standard Deviation 50.3 fL (35.1-46.3); Red Blood Cell Count 3.77 M/mm3 (4.30-5.90); White Blood Cell Count 8.82 K/mm3 (4.00-11.30)
[2023-03-27 09:52] LABS: Alanine Aminotransfer (ALT/SGP 25 U/L (12-78); Albumin, Blood 2.7 g/dL (3.4-5.0); Albumin/Globulin Ratio 0.6 (0.8-1.8); Alk Phos 124 U/L (50-136); Anion Gap Unable to Calculate mmol/L (6-16); Aspartate Aminotrans (AST/SGOT 24 U/L (12-37); Bilirubin, Total 0.3 mg/dL (0.1-1.0); Blood Urea Nitrogen 17 mg/dL (8-24); Bun/Creatinine Ratio 38.7 (12.0-20.0); Calcium, Blood 9.3 mg/dL (8.5-10.1); Chloride, Blood 87 mmol/L (98-108); Creatinine, Blood 0.44 mg/dL (0.60-1.20); Globulin, Blood 4.2 g/dL (2.2-4.0); Glomerular Filtration Rate 126 (60-); Glucose, Blood 145 mg/dL (70-99); Potassium, Blood 4.6 mmol/L (3.5-5.5); Sodium, Blood 138 mmol/L (136-145); Total Protein, Blood 6.9 g/dL (6.4-8.2)
[2023-03-27 09:54] LABS: CO2, Blood >45 mmol/L (21-32)
[2023-03-27] MEDS ORDERED: Magnesium Sulf 2 GM/Water 50ML 50 ML IV ONE (11:25)
[2023-03-27] MEDS ORDERED: Albuterol 2.5 MG/3 ML VIAL INH PRN (11:25)
--- NOTE | 2023-03-27 11:40 | NUR ---
DR MEI CAME TO ROOM AND REMOVED PT FROM BIPAP AND TRIALLED ROOM AIR. PT DROPPED TO 69% IN A FEW MINUTES. 8L NC IN PLACE WITH SAT 95%. PT CONTINUED TALKING TO DR THROUGH THIS. RT AT BEDSIDE AND PUT ETCO2 ON BIPAP MASK AND DR TOLD PT HE COULD ALTERNATE BETWEEN MASK AND NC. PT TOOK SIP OF WATER AND COUGHED. WAS REMINDED TO TUCK CHIN. DISCUSSED WITH JUNIOR LINUX ADMINISTRATOR THAT SPEECH EVAL WILL BE NEEDED WHEN PT IS ABLE TO TOLERATE EATING AND DRINKING. INSTRUCTED FOR NARCAN DRIP TO BE STOPPED AT THIS TIME.
[2023-03-27 14:52] LABS: Base Excess Venous 33.6 mmol/L; Bicarbonate Venous 53.1 mmol/L (24.0-30.0); PCO2 Venous 96.4 mmHg (38-42); pH Blood Venous 7.39 (7.34-7.37)
--- NOTE | 2023-03-27 16:28 | NUR ---
CALL TO HAMIDA REGARDING FLUID ORDERS. STATED FLUID BOLUS. RT MADE HIM AWARE THAT SETTINGS ON BIPAP ARE NOW 18/8 WITH TV OF 450 AND 35% FIO2. NO ORDERS FOR ABG AT THIS TIME
--- NOTE | 2023-03-27 18:20 | NUR ---
SHIFT SUMMARY: PT RETURNED TO BIPAP SETTINGS OF 18/8 AND FIO2 OF 40%. PT WAS ON NASAL CANNULA FOR AN HOUR TODAY AND WORK OF BREATHING INCREASED SO HE HAD TO RETURN TO BIPAP. MORE AWAKE AND ALERT THIS AFTERNOON. PALLIATIVE CARE FAMILIAR WITH PT AND FAMILY AND PLANS TO HAVE FURTHER CONVERSATIONS ABOUT DISCHARGE PLANNING NEEDS AND PROGRESS OF CARE. BLADDER SCAN AND STRAIGHT CATH X1 FOR RETENTION. NO FURTHER NEEDS OR CONCERNS AT THIS TIME.
--- NOTE | 2023-03-27 19:15 | NUR ---
ASSUMPTION OF CARE RECEIVED INTO CARE, BEDSIDE REPORT GIVEN BY DAY RN. PT LYING IN BED WITH EYES CLOSED, RESPONDS TO VERBAL STIMULI. ON BIPAP, SPO2>92% ON CURRENT SETTINGS. IN NSR, VSS. NO VOICED CONCERNS AT THIS TIME. APPEARS COMFORTABLE. CALL URBINA IN REACH.
--- NOTE | 2023-03-27 22:36 | NUR ---
UPDATE: PT AWAKE AND ALERT WATCHING TV IN BED. VERY TALKATIVE. BLADDER SCANNED FOR 351ML, DID NOT STRAIGHT CATH, WILL RESCAN IN 1-2HR. PT TRIED TO VOID USING URINAL, SAYS HAS NO URGE TO VOID. STATES AT HOME USUALLY HAS FREQUENCY/URGENCY AND SOMETIMES CANNOT MAKE IT TO BATHROOM. PT STATES WILL HAVE URGE TO VOID WHEN BLADDER MORE FULL. TRIED A SIP OF WATER, DIFFICULT TO SWALLOW DUE TO DRY MOUTH/THROAT. DID COUGH ON SECOND SIP. VOICE REMAINED CLEAR.
[2023-03-28] VITALS (22 sets, daily range): BP systolic 109–153; BP diastolic 75–108
[2023-03-28 04:08] LABS: BASOPHILS ABSOLUTE AUTO 0.02 K/mm3 (0.00-0.23); BASOPHILS PERCENT AUTO 0 % (0-2); EOSINOPHILS PERCENT AUTO 0 % (0-6); Hematocrit 34.9 % (37.0-53.0); Hemoglobin 10.5 g/dL (13.5-17.5); IMMATURE GRAN ABSOLUTE AUTO 0.03 K/mm3 (0.00-0.10); IMMATURE GRAN PERCENT AUTO 0 % (0-1); LYMPHOCYTES ABSOLUTE AUTO 0.54 K/mm3 (0.84-5.20); LYMPHOCYTES PERCENT AUTO 7 % (21-46); MONOCYTES ABSOLUTE AUTO 0.29 K/mm3 (0.16-1.47); MONOCYTES PERCENT AUTO 4 % (4-13); Mean Corpuscular HGB Conc 30.1 g/dL (31.5-36.5); Mean Platelet Volume 9.8 fL (9.1-12.4); NEUTROPHILS ABSOLUTE AUTO 6.91 K/mm3 (1.96-9.15); NEUTROPHILS PERCENT AUTO 89 % (41-73); Platelet Count 314 K/mm3 (150-400); RDW Coefficient Variation 12.9 % (11.7-14.2); Red Blood Cell Count 3.39 M/mm3 (4.30-5.90); White Blood Cell Count 7.79 K/mm3 (4.00-11.30)
[2023-03-28 04:31] LABS: Mean Corpuscular Volume 103 fL (80-100)
[2023-03-28 04:46] LABS: Blood Urea Nitrogen 17 mg/dL (8-24); Bun/Creatinine Ratio 37.9 (12.0-20.0); Calcium, Blood 9.3 mg/dL (8.5-10.1); Chloride, Blood 91 mmol/L (98-108); Creatinine, Blood 0.45 mg/dL (0.60-1.20); Glomerular Filtration Rate 125 (60-); Glucose, Blood 135 mg/dL (70-99); Potassium, Blood 4.4 mmol/L (3.5-5.5); Sodium, Blood 138 mmol/L (136-145)
[2023-03-28 04:48] LABS: Anion Gap Unable to Calculate mmol/L (6-16)
[2023-03-28 04:49] LABS: CO2, Blood >45 mmol/L (21-32)
[2023-03-28] MEDS ORDERED: Pantoprazole Sodium 40 MG Injection IV SCH (06:00)
--- NOTE | 2023-03-28 06:06 | NUR ---
SHIFT SUMMARY DROWSY/CONFUSED AT BEGINNING OF SHIFT THEN BECAME MORE ALERT AND NOW ORIENTED TO PERSON/PLACE/SELF/PLACE. MOVING INDEP IN BED TO REPOSITION. NO PAIN. IN SR, SBP 120-140S. REMAINED ON BIPAP THROUGHOUT NIGHT 18/8 35%. STRAIGHT CATH X1. BLADDER SCANNED THIS MORNING FOR 408ML. NO URGE TO VOID, URINAL WITHIN REACH. GIVEN SMALL SIPS WATER, SWALLOWED WELL. SON WAS UPDATED. NO VOICED CONCERNS AT THIS TIME. PT REMAINS LYING IN BED WITH EYES CLOSED, APPEARS COMFORTABLE, VSS. CALL URBINA IN REACH.
--- NOTE | 2023-03-28 08:53 | NUR ---
PER PERMISSION, PT CHANGED TO NC AND OFF BIPAP FOR ORAL INTAKE ASSESSMENT. PT IS ABLE TO SWALLOW WELL AND COMMUNICATE WITH NC AT 6L, R/T DC DECREASES THE LITERS TO 4 TO KEEP PT FROM SATURATING TOO HIGH. SATS AROUND LOW 90'S. TOLERATED YOGURT AND BOOST. WILL TRY TO KEEP OFF BIPAP FOR LONG TOLERATED.
--- NOTE | 2023-03-28 09:38 | NUR ---
DURING MAGGIE'S CONVERSATION ON THE PHONE WITH HIS , HIS WORK OF BREATHING, RESPIRATORY RATE AND HEART RATE ALL BEGAN TO INCREASE. AT BEDSIDE ENCOURAGED HIM TO RETURN TO THE BIPAP AND TAKE A BREAK. SETTINGS 18/8 35%.
[2023-03-28] MEDS ORDERED: Sodium Chloride 1 GM TAB PO ONE (11:35)
--- NOTE | 2023-03-28 12:31 | NUR ---
MAGGIE HAS BEEN NAPPING FOR THE LAST HOUR OR SO, GOING TO LET HIM REST AND THEN GIVE LUNCH.
[2023-03-28] MEDS ORDERED: Docusate Sodium 100 MG Cap PO PRN (16:10)
[2023-03-28] MEDS ORDERED: Morphine Sulfate 20 MG/1ML 1 ML Oral Syringe PO PRN (16:20)
--- NOTE | 2023-03-28 16:20 | NUR ---
PT'S WORK OF BREATHING IS INCREASING, RESP RATE HI 30'S, 40'S. PT ENCOURAGED TO RETURN TO BIPAP UNTIL DINNER. HE REMAINS AT THE SAME SETTINGS.
--- NOTE | 2023-03-28 18:02 | NUR ---
TOOK MAGGIE OFF BIPAP TO HAVE DINNER, NC @ 3L, PT STRUGGLING SOME. INCREASED TO 5L AND HE TOLERATED EATING MUCH BETTER. DOSE OF ROXINOL GIVEN, PT STATES IT HELPED A LOT. WANTS TO REMAIN ON NC @ 5L FOR LONG POSSIBLE. HE TOOK IN ALL HIS MEAL, WAS HAPPY TO EAT. 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 WILL CONTINUE TO WORK WITH PALLIATIVE AND CASE MANAGEMENT TO HELP PATIENT WITH END OF LIFE CARE.
[2023-03-28] MEDS ORDERED: MethylPREDNISolone Sod Succ 125 MG Vial IV SCH (21:00)
[2023-03-29] VITALS (17 sets, daily range): BP systolic 117–161; BP diastolic 87–103
[2023-03-29 03:43] LABS: BASOPHILS ABSOLUTE AUTO 0.02 K/mm3 (0.00-0.23); BASOPHILS PERCENT AUTO 0 % (0-2); EOSINOPHILS PERCENT AUTO 0 % (0-6); Hematocrit 37.6 % (37.0-53.0); Hemoglobin 11.6 g/dL (13.5-17.5); IMMATURE GRAN ABSOLUTE AUTO 0.05 K/mm3 (0.00-0.10); IMMATURE GRAN PERCENT AUTO 0 % (0-1); LYMPHOCYTES ABSOLUTE AUTO 0.72 K/mm3 (0.84-5.20); LYMPHOCYTES PERCENT AUTO 6 % (21-46); MONOCYTES ABSOLUTE AUTO 0.23 K/mm3 (0.16-1.47); MONOCYTES PERCENT AUTO 2 % (4-13); Mean Corpuscular HGB 30.7 pg (26.0-34.0); Mean Corpuscular HGB Conc 30.9 g/dL (31.5-36.5); Mean Corpuscular Volume 100 fL (80-100); Mean Platelet Volume 9.2 fL (9.1-12.4); NEUTROPHILS ABSOLUTE AUTO 11.92 K/mm3 (1.96-9.15); NEUTROPHILS PERCENT AUTO 92 % (41-73); Platelet Count 329 K/mm3 (150-400); RDW Standard Deviation 47.8 fL (35.1-46.3); Red Blood Cell Count 3.78 M/mm3 (4.30-5.90); White Blood Cell Count 12.94 K/mm3 (4.00-11.30)
[2023-03-29 04:02] LABS: Albumin, Blood 2.8 g/dL (3.4-5.0); Blood Urea Nitrogen 21 mg/dL (8-24); Bun/Creatinine Ratio 44.3 (12.0-20.0); Calcium, Blood 9.3 mg/dL (8.5-10.1); Chloride, Blood 91 mmol/L (98-108); Creatinine, Blood 0.47 mg/dL (0.60-1.20); Glomerular Filtration Rate 123 (60-); Glucose, Blood 187 mg/dL (70-99); Phosphorus, Blood 3.7 mg/dL (2.5-4.9); Potassium, Blood 4.2 mmol/L (3.5-5.5); Sodium, Blood 136 mmol/L (136-145)
[2023-03-29 04:03] LABS: Anion Gap Unable to Calculate mmol/L (6-16)
[2023-03-29 04:04] LABS: CO2, Blood >45 mmol/L (21-32)
--- NOTE | 2023-03-29 05:52 | NUR ---
SHIFT SUMMARY: PT IS A&OX4 AND ABLE TO MAKE NEEDS KNOWN. HE HAS WORN THE BIPAP (18/8 35%) INTERMITTENTLY THROUGH THE NIGHT OR BEEN ON 6L NC. HE DID HAVE INCREASED WOB AND AIR HUNGER WHILE ON NC, BUT RESPONDED WELL TO MORPHINE DOSE. HE HAS BEEN ABLE TO MAINTAIN O2 SATURATION >90 ALL NIGHT. HE DENIES ANY PAIN, N/V, OR DIZZINESS. PT'S VSS. PT SAFETY MAINTAINED.
--- NOTE | 2023-03-29 08:16 | NUR ---
Spiritual Care Visit. Pt. is awake in bed and welcomes my visit. Pt. is pleasant. Rapport is quickly re-established as this blood collector has seen this Pt. in a Previous visit. Facilitate a life update. Pt. displays evidence of trust. Pt. verbalizes that he has not been real good about using his medical equipment at home, and also verbalizes that his spouse will be coming in today to visit him. Considered matters of marty and belief. Pt. verbalized gratitude for the cross he was given on a previous visit. Prayed with Pt. Pt. verbalized gratitude for the spiritual care visit.
--- NOTE | 2023-03-29 10:54 | NUR ---
MAGGIE HAS BEEN ON NC @ 4L SINCE BREAKFAST. HE IS TOLERATING WELL, HAD ONE DOSE OF ROXINOL FOR AIR HUNGER. RESP RATE CONT. IN THE 30'S, HAD BED BATH INC. NC TO 5L DURING, DENIED NEED TO RETURN TO BIPAP AT THIS TIME. SATS 93% ON 3L.
--- NOTE | 2023-03-29 12:19 | NUR ---
Aryan just got off the phone with his and he is visibly upset and verbally sharing "the drama" as he called it that his is giving him. He is encouraged to breathe slower and focus on his breathing. NC to 3L to keep sats between 88-92%. BP elevated.
--- NOTE | 2023-03-29 12:44 | NUR ---
MAGGIE IS VERY WINDED AND HIS WORK OF BREATHING HAS INCREASED SIGNIFICANTLY, CONVINCED HIM TO GO BACK ON THE BIPAP AND REST FOR A WHILE. SETTINGS UNCHANGED AT 18/8 35%. SATS 92%. RESP RATE HI 30'S, HEART RATE 110'S.
[2023-03-29] MEDS ORDERED: Sodium Chloride 1 GM TAB PO ONE (17:45)
--- NOTE | 2023-03-29 17:58 | NUR ---
OUTBOARD MOTOR MECHANIC CAME TO SPEAK WITH MAGGIE RELATED TO SOME OF THE ISSUES RELATING TO DISCHARGE. HE WAS VERY SHAKEN, HE EXPRESSED HIMSELF AND SOME OF HIS FEELINGS. THERAPEUTIC LISTENING. HE EXPRESSED HOW THE MASK IS MAKING HIM FEEL "NOT LIKE IT'S A BREAK" BUT MORE OF A FCI. ALLOWED HIM TO SHARE HIS FEELINGS WHILE JUST LISTENING. HE APOLOGIZED, ENCOURAGED TO LET HIS FEELINGS OUT HE IS DEALING WITH HIS MORTALITY.
--- NOTE | 2023-03-29 19:23 | NUR ---
ASSUMED CARE OF PT AT 1900 PT RESTING IN BED WITH AIRVO IN PLACE. A/O X4. PT PARTICIPATED IN BEDSIDE SHIFT REPORT WITH ELY ZEPEDA. SEE FULL ASSESSMENT FOR FURTHER INFORMATION.
[2023-03-30 03:19] LABS: BASOPHILS ABSOLUTE AUTO 0.02 K/mm3 (0.00-0.23); BASOPHILS PERCENT AUTO 0 % (0-2); EOSINOPHILS PERCENT AUTO 0 % (0-6); Hematocrit 39.6 % (37.0-53.0); Hemoglobin 12.1 g/dL (13.5-17.5); IMMATURE GRAN ABSOLUTE AUTO 0.11 K/mm3 (0.00-0.10); IMMATURE GRAN PERCENT AUTO 1 % (0-1); LYMPHOCYTES ABSOLUTE AUTO 0.43 K/mm3 (0.84-5.20); LYMPHOCYTES PERCENT AUTO 4 % (21-46); MONOCYTES ABSOLUTE AUTO 0.55 K/mm3 (0.16-1.47); MONOCYTES PERCENT AUTO 5 % (4-13); Mean Corpuscular HGB 30.9 pg (26.0-34.0); Mean Corpuscular HGB Conc 30.6 g/dL (31.5-36.5); Mean Corpuscular Volume 101 fL (80-100); Mean Platelet Volume 8.6 fL (9.1-12.4); NEUTROPHILS ABSOLUTE AUTO 9.19 K/mm3 (1.96-9.15); NEUTROPHILS PERCENT AUTO 89 % (41-73); Platelet Count 302 K/mm3 (150-400); RDW Coefficient Variation 12.9 % (11.7-14.2); Red Blood Cell Count 3.92 M/mm3 (4.30-5.90)
[2023-03-30 04:41] LABS: Blood Urea Nitrogen 19 mg/dL (8-24); Bun/Creatinine Ratio 46.8 (12.0-20.0); Calcium, Blood 9.1 mg/dL (8.5-10.1); Chloride, Blood 91 mmol/L (98-108); Creatinine, Blood 0.41 mg/dL (0.60-1.20); Glomerular Filtration Rate 129 (60-); Glucose, Blood 182 mg/dL (70-99); Potassium, Blood 4.7 mmol/L (3.5-5.5); Sodium, Blood 136 mmol/L (136-145)
[2023-03-30 04:42] LABS: Anion Gap Unable to Calculate mmol/L (6-16)
[2023-03-30 04:43] LABS: CO2, Blood >45 mmol/L (21-32)
[2023-03-30 08:00] VITALS: BP 111/75
[2023-03-30 10:00] VITALS: BP 147/96
[2023-03-30] MEDS ORDERED: Sennosides 8.6 MG Tab PO PRN (13:50)
[2023-03-30] MEDS ORDERED: Docusate Sodium 100 MG Cap PO PRN (13:50)
[2023-03-30 14:00] VITALS: BP 129/92
[2023-03-30 16:00] VITALS: BP 111/79
[2023-03-30 18:00] VITALS: BP 133/91
--- NOTE | 2023-03-30 18:25 | NUR ---
Shift summary. Pt continuing to require high amounts of 02 this shift. On humidified high-flow NC and Bipap intermittently throughout shift. NC LPM titrated between 4 and 7 depending on pt activity level. Pt otherwise independent, able to get up to commode and use urinal w/o assistance. Uses call light appropriately. Pt tachycardic and tachypnic when exherting himself, VS otherwise stable. See chart for further details.
[2023-03-30 20:08] VITALS: BP 144/93
[2023-03-31 00:02] VITALS: BP 139/92
[2023-03-31 05:15] LABS: Hematocrit 42.7 % (37.0-53.0); Hemoglobin 12.6 g/dL (13.5-17.5)
[2023-03-31 05:25] VITALS: BP 132/89
[2023-03-31 05:55] LABS: Blood Urea Nitrogen 20 mg/dL (8-24); Bun/Creatinine Ratio 45.6 (12.0-20.0); Calcium, Blood 9.5 mg/dL (8.5-10.1); Chloride, Blood 88 mmol/L (98-108); Creatinine, Blood 0.44 mg/dL (0.60-1.20); Glomerular Filtration Rate 126 (60-); Glucose, Blood 149 mg/dL (70-99); Potassium, Blood 5.1 mmol/L (3.5-5.5); Sodium, Blood 136 mmol/L (136-145)
[2023-03-31 05:56] LABS: Anion Gap Unable to Calculate mmol/L (6-16); CO2, Blood >45 mmol/L (21-32)
[2023-03-31] MEDS ORDERED: Pantoprazole Sodium 20 MG Tab PO SCH (06:00)
--- NOTE | 2023-03-31 06:29 | NUR ---
SHIFT SUMMARY PATIENT ALERT, ORIENTED x2-3, ANSWERS ORIENTATION QUESTIONS APPROPRIATELY BUT IS FORGETFUL IN OTHER CONVERSATION. BP STABLE. TELE READING SR DURING THE NIGHT. PATIENT DECLINED TO WEAR BIPAP. ON 6-8L NC WITH SPO2 MID 90s. PATIENT USING URINAL INDEPENDENTLY WITH ADEQUATE OUTPUT DURING THE NIGHT. BED ALARM ON FOR SAFETY. NO OTHER CHANGES DURING THE NIGHT. WILL REPORT TO DAY SHIFT RN.
[2023-03-31 08:03] VITALS: BP 106/73
[2023-03-31 11:31] VITALS: BP 133/86
[2023-03-31 16:15] VITALS: BP 113/81
--- NOTE | 2023-03-31 17:56 | NUR ---
END OF SHIFT PT A&O X4. VSS. SPO2 > 92% ON 5L NC. PT W/ LABORED BREATHING. BIPAP @ BEDSIDE, WORN X2 THIS SHIFT. MONITOR SHOWING SR-ST, HR 90s-110s. PT REPORTS INTENTION TO DISCHARGE HOME ON HOSPICE.
[2023-03-31 20:23] VITALS: BP 114/88
[2023-04-01 05:03] VITALS: BP 119/90
--- NOTE | 2023-04-01 06:05 | NUR ---
SHIFT SUMMARY PATIENT ALERT, ORIENTED x3-4, ABLE TO MAKE NEEDS KNOWN TO STAFF. BP STABLE. TELE READING SR 80s DURING THE NIGHT. ALTERNATING BETWEEN BIPAP AND 6L NC DURING THE NIGHT, SPO2 >90%. MEDICATED PER EMAR FOR AIR HUNGER. USING URINAL INDEPENDENTLY, ADEQUATE OUTPUT DURING THE NIGHT. NO OTHER ACUTE CHANGES DURING THE NIGHT. WILL REPORT TO DAY SHIFT RN.
[2023-04-01 08:36] VITALS: BP 108/86
[2023-04-01 12:36] VITALS: BP 137/87
[2023-04-01 15:49] VITALS: BP 133/90
--- NOTE | 2023-04-01 17:21 | NUR ---
SHIFT SUMMARY NO ACUTE CHANGES THIS SHIFT. PT HAS REMAINED AWAKE, ALERT, AND ORIENTED THROUGHOUT THE SHIFT. PT HAS REMAINED ON 6L O2 NC THROUGHOUT THE SHIFT. PT DENIES SOB AT REST, BUT RR REMAINS LABORED WITH EXERTION OR SPEAKING. IV'S SALINE LOCKED. VITAL SIGNS STABLE. PT REPOSITIONS SELF IN BED INDEPENDENTLY AND UP TO BSC WITH SBA. NO FAMILY AT BEDSIDE THIS SHIFT. PT TAKING PO INTAKE IN WELL. WILL CONTINUE TO MONITOR AND REPORT OFF TO ONCOMING RN.
[2023-04-01 20:38] VITALS: BP 121/81
[2023-04-01] MEDS ORDERED: Polyethylene Glycol 3350 17 gm PO SCH (21:00)
[2023-04-01] MEDS ORDERED: Docusate Sodium 100 MG Cap PO SCH (21:00)
[2023-04-01 23:25] VITALS: BP 110/83
[2023-04-02 04:05] VITALS: BP 121/88
--- NOTE | 2023-04-02 05:34 | NUR ---
SHIFT SUMMARY A/Ox4 AND COOPERATIVE WITH CARE. ANSWERS QUESTIONS APPROPRIATELY AND ABLE TO MAKE HIS NEEDS KNOWN. NO ACUTE EVENTS OVERNIGHT FOR PT WAS ABLE TO SLEEP T/O MOST OF THE SHIFT. CARDIAC, REMAINS IN SR 80-90'S WITH NO REPORTS OF CP, PRESSURE, OR DIZZINESS THROUGHOUT THE SHIFT. SBP HAS REMAINED STABLE RANGING 110-120'S. RESPIRATORY, MAINTAINS SPO2 >90% ON 5-6L VIA HFNC. BiPAP USE 18/8 40% FiO2. INCREASED WORK OF BREATHING NOTED WITH MINIMAL EXERTION. GI/, ABLE TO STAND PIVOT TO BSC TO VOID OR USE URINAL AT BEDSIDE. NO NEW ORDERS AT THIS TIME, WILL REPORT TO ONCOMING RN. REJI REEVES OF THIS NOTE.
[2023-04-02 07:16] VITALS: BP 139/94
--- NOTE | 2023-04-02 07:27 | NUR ---
AM NOTE Pt alert, oriented x4; calm and cooperative with care. Able to make needs known. Pt reports air hunger this am, medicated x1 with roxanol. Pt reports dizziness at times, educated pt to get up and move around slowly. Pt denies pain, chest pain/pressure, nausea, and numb/tingling this am. Spo2 at 99-100 on 5-6L, titrated down to 2.5l spo2 at 97, breathing laboreded, pt useing short sentnces, tripoding at times, ls tight/diminished with wheezeing noted. Tele sinus 80-90's this am, bp stable. No edema noted. Abd mild distention, firm, nontender, +bt t/o. No other acute changes noted. Will continue to monitor.
--- NOTE | 2023-04-02 13:42 | NUR ---
Pt is alert, pleasantly confused but he is able to verbalize his desire to go home sooner than later. He states he is "ready for hospice this time", and tells me he understands that he won't be transferring back to the hospital, and the goal will be symptom management. Spoke to pt's Fatemeh who states she knows pt is declining, and she verbalizes relief that hospice is coming to support her and the patient. principal product manager is aware, and will be working with [facility] out of [place], [place] since the patient lives in [place].
[2023-04-02 15:52] VITALS: BP 127/86
--- NOTE | 2023-04-02 16:59 | NUR ---
SHIFT SUMMARY No acute changes t/o shift. Pt up to bathroom with sba to assist with o2 tubing. Spo2 dropped to 60's while patient took off o2, replaced and recovered quickly. Titrated o2 from 2-6l t/o shift. Other vss. Will contnue to monitor.
[2023-04-02 20:00] VITALS: BP 137/90
[2023-04-02 23:52] VITALS: BP 105/88
[2023-04-03 04:08] VITALS: BP 117/82
--- NOTE | 2023-04-03 05:36 | NUR ---
SHIFT SUMMARY A/Ox4 AND COOPERATIVE WITH CARE. ANSWERS QUESTIONS APPROPRIATELY AND ABLE TO MAKE HIS NEEDS KNOWN. NO ACUTE EVENTS OVERNIGHT FOR PT WAS ABLE TO SLEEP T/O MOST OF THE SHIFT. CARDIAC, REMAINS IN SR-ST 80-100'S WITH NO REPORTS OF CP, PRESSURE, OR DIZZINESS THROUGHOUT THE SHIFT. SBP HAS REMAINED STABLE RANGING 100-130'S. RESPIRATORY, MAINTAINS SPO2 >90% ON 2-4-L VIA HFNC. BiPAP USED 18/8 40% FiO2 WHEN PT IS ASLEEP. INCREASED WORK OF BREATHING NOTED WITH MINIMAL EXERTION OR WHEN TALKING FOR SOME TIME. GI/, ABLE TO STAND PIVOT TO BSC TO VOID OR USE URINAL AT BEDSIDE. POTENTIAL D/C HOME THIS AM. NO NEW ORDERS AT THIS TIME, WILL REPORT TO ONCOMING RN. REJI REEVES OF THIS NOTE.
[2023-04-03 08:48] VITALS: BP 135/84
[2023-04-03] MEDS ORDERED: DOCU100 PO (10:18)
[2023-04-03] MEDS ORDERED: MORP20L PO (10:19)
[2023-04-03] MEDS ORDERED: ONDA4ODT MM (10:19)
[2023-04-03] MEDS ORDERED: MIRALAX17 GM PO (10:19)
[2023-04-03 11:14] VITALS: BP 146/95
--- NOTE | 2023-04-03 18:42 | NUR ---
Shift Summary Pt and spouse educated on discharge insturctions, plans to follow up with [facility]. Spouse states they are to be home at approx 1pm for the intake. Pt left via wheelchair.
== END 2023-04-03 11:30 | disposition hospice, home (50) | DRG 189 ==
LOC: ER 01:44 → ICUE 04:31 → PCU 03-30 19:50
PROVIDERS: Emergency Medicine; Internal Medicine; Internal Medicine Critical Care Medicine; Student in an Organized Health Care Education/Training Program; ADMIT Internal Medicine
PROC: 5A09357 Assistance with Respiratory Ventilation, Less than 24 Consecutive Hours, Continuous Positive Airway Pressure (ICD-10-PCS; principal; 2023-03-27)
DX: J96.21 Acute and chronic respiratory failure with hypoxia (principal); G93.41 Metabolic encephalopathy; J44.1 Chronic obstructive pulmonary disease with (acute) exacerbation; I50.32 Chronic diastolic (congestive) heart failure; E87.3 Alkalosis; Z66 Do not resuscitate; Z51.5 Encounter for palliative care; J96.22 Acute and chronic respiratory failure with hypercapnia; F17.210 Nicotine dependence, cigarettes, uncomplicated; E87.8 Other disorders of electrolyte and fluid balance, not elsewhere classified; I50.810 Right heart failure, unspecified; F12.90 Cannabis use, unspecified, uncomplicated; I11.0 Hypertensive heart disease with heart failure; K21.9 Gastro-esophageal reflux disease without esophagitis; I27.20 Pulmonary hypertension, unspecified; Z79.51 Long term (current) use of inhaled steroids; Z79.899 Other long term (current) drug therapy; Z79.01 Long term (current) use of anticoagulants
CPT/HCPCS: 0241U; 36415; 51701; 71045; 80048; 80053; 80069; 81001; 82803; 83605; 83735; 83880; 84100; 84145; 84443; 84484; 85014; 85018; 85025; 85379; 85610; 85730; 93005; 93010; 94640; 94660; 94664; 94762; 96365; 96366; 96376; 99285-25; A9270; C9113; J0456; J0696; J1650; J2310; J2930; J3475; J7030; J7050